=== PATIENT | male | born 1955 | race Caucasian/White ===

== ENCOUNTER 2016-05-28 19:40 | Emergency (ER) | payer BC, OTHER ==
[2016-05-28] MEDS ORDERED: KETOROLAC 30 MG/ML 1 ML VIAL IVP STA (22:03)
[2016-05-28] MEDS ORDERED: SODIUM CHLORIDE 0.9% 1,000 ML IV STA (22:03)
[2016-05-28] MEDS ORDERED: ONDANSETRON 4 MG/2 ML VIAL IVP STA (22:03)
[2016-05-28] MEDS ORDERED: ACETAMINOPHEN IV (For NPO) 1,000 MG in EMPTY BAG 1 BAG IVPB STA (22:06)
--- NOTE | 2016-05-28 22:51 | ED ---
General Adult HPI - General Chief complaint: Nausea/Vomiting/Diarrhea Stated complaint: diarrhea/abdominal pain Time Seen by Provider: 05/28/16 21:54 Source: patient, RN notes reviewed Mode of arrival: ambulatory Limitations: no limitations - History of Present Illness Initial comments: Patient is a 61-year-old male with chief complaint of 1 day of diarrhea and fever. Patient reports that he's had multiple episodes of diarrhea but still feels that there is a hard stool at the beginning of the rectum causing obstruction. reports he's had no Motrin or Tylenol. Patient's mother also reports that he feel that whenever he is trying to drink he feels is unable to pass from his abdomen into his intestines. He denies any vomiting. Patient reports that he has a history of cholecystectomy, hernia repair and sinus surgery. He denies taking any Motrin Tylenol for his fevers. He denies any sick contacts. Patient denies any recent fever, chills, shortness of breath , chest pain, back pain, abdominal pain, nausea vomiting, numbness or tingling, dysuria or hematuria, constipation or diarrhea, headaches or visual changes, or any other current symptoms - Related Data Home Medications Medication Instructions Recorded Confirmed Aspirin [Adult Low Dose Aspirin EC] 81 mg PO DAILY 03/29/15 05/28/16 Losartan Potassium 100 mg PO QAM 03/29/15 05/28/16 Multivitamins, Thera [Multivitamin] 1 tab PO DAILY 03/29/15 05/28/16 Bismuth Subsalicylate 524 mg PO Q3H PRN MDD 8 DOSES 05/28/16 05/28/16 [Pepto-Bismol] Previous Rx's Medication Instructions Recorded Levofloxacin [Levaquin] 500 mg PO DAILY #2 tab 05/29/16 Allergies Allergy/AdvReac Type Severity Reaction Status Date / Time No Known Allergies Allergy Verified 05/28/16 22:25 Review of Systems ROS Statement: Those systems with pertinent positive or pertinent negative responses have been documented in the HPI. ROS Other: All systems not noted in ROS Statement are negative. Past Medical History Past Medical History: Hypertension Additional Past Medical History / Comment(s): left hernia History of Any Multi-Drug Resistant Organisms: None Reported Past Surgical History: Cholecystectomy, Hernia Repair Additional Past Surgical History / Comment(s): HEMORRHOIDECTOMY, colonoscopy, L inguinal hernia repair. Past Anesthesia/Blood Transfusion Reactions: No Reported Reaction Past Psychological History: No Psychological Hx Reported Additional Psychological History / Comment(s): Pt resides with his spouse. He is independent. Smoking Status: Never smoker Past Alcohol Use History: Rare Past Drug Use History: None Reported - Past Family History Father Family Medical History: COPD Additional Family Medical History / Comment(s): Father is 83 yrs old. Mother Family Medical History: No Reported History Additional Family Medical History / Comment(s): Mother has "heart problems" and is 80 yrs old. General Exam - General Exam Comments Initial Comments: Patient is a well-appearing 61-year-old male. Patient doesn't appear to be in any acute distress. Limitations: no limitations General appearance: alert, in no apparent distress Head exam: Present: atraumatic, normocephalic, normal inspection Eye exam: Present: normal appearance, PERRL, EOMI. Absent: scleral icterus, conjunctival injection, periorbital swelling ENT exam: Present: normal exam, mucous membranes moist Neck exam: Present: normal inspection. Absent: tenderness, meningismus, lymphadenopathy Respiratory exam: Present: normal lung sounds bilaterally. Absent: respiratory distress, wheezes, rales, rhonchi, stridor Cardiovascular Exam: Present: regular rate, normal rhythm, normal heart sounds. Absent: systolic murmur, diastolic murmur, rubs, gallop, clicks GI/Abdominal exam: Present: soft, tenderness (Patient reports mild epigastric tenderness.), normal bowel sounds. Absent: distended, guarding, rebound, rigid Extremities exam: Present: normal inspection, full ROM, normal capillary refill. Absent: tenderness, pedal edema, joint swelling, calf tenderness Back exam: Present: normal inspection Neurological exam: Present: alert, oriented X3, CN II-XII intact Psychiatric exam: Present: normal affect, normal mood Skin exam: Present: warm, dry, intact, normal color. Absent: rash Course Vital Signs 05/28/16 05/29/16 05/29/16 20:26 00:15 02:13 Temperature 101.1 F H 98.5 F 97.6 F Pulse Rate 119 H 77 82 Respiratory 20 18 18 Rate Blood Pressure 113/74 112/57 95/53 O2 Sat by Pulse 99 95 95 Oximetry Medical Decision Making - Medical Decision Making Patient is a 61-year-old male with 1 day of diarrhea. Patient also has a fever but has had no Motrin Tylenol. Patient's upper quadrant region patient does have elevated leukocytosis of 14. Patient given patient's recent fever and urinalysis showing blood thinners approximately he could have a mild obstruction stone. CT abdomen and pelvis was obtained. The area is evidence of bilateral renal colliculi. There is also evidence of left renal cysts. Radiologist recommends follow-up CT with IV contrast her ultrasound to be recommended. Nonspecific bowel gas pattern. No evidence of free fluid or free air. There was evidence of a small hiatal hernia. This was read by Dr. Jeanie Ricci. I discussed these findings with the patient. Patient reports that he did have a few other episodes of diarrhea while in the emergency department but does feel much better after receiving Tylenol and pain medication. Patient reports that he would like to go home at this time. I will start the patient on Levaquin for possibility of infectious diarrhea given the fact that he does have a fever. Patient was given an initial dose in the emergency department and written for the following 2 days. I advised patient to follow-up with primary care provider regards to the renal cyst and his continuous diarrhea. Patient understands treatment plan will comply. Return parameters were discussed. - Lab Data Result diagrams: 05/28/16 20:40 05/28/16 20:40 Lab Results 05/28/16 05/28/16 05/28/16 Range/Units 20:40 20:40 20:40 WBC 14.1 H (3.8-10.6) k/uL RBC 5.15 (4.30-5.90) m/uL Hgb 15.6 (13.0-17.5) gm/dL Hct 46.7 (39.0-53.0) % MCV 90.7 (80.0-100.0) fL MCH 30.2 (25.0-35.0) pg MCHC 33.3 (31.0-37.0) g/dL RDW 13.3 (11.5-15.5) % Plt Count 217 (150-450) k/uL Neutrophils % 94 % Lymphocytes % 2 % Monocytes % 3 % Eosinophils % 1 % Basophils % 0 % Neutrophils # 13.3 H (1.3-7.7) k/uL Lymphocytes # 0.3 L (1.0-4.8) k/uL Monocytes # 0.4 (0-1.0) k/uL Eosinophils # 0.1 (0-0.7) k/uL Basophils # 0.0 (0-0.2) k/uL Sodium 139 (137-145) mmol/L Potassium 4.4 (3.5-5.1) mmol/L Chloride 103 (98-107) mmol/L Carbon Dioxide 22 (22-30) mmol/L Anion Gap 14 mmol/L BUN 24 H (9-20) mg/dL Creatinine 1.00 (0.66-1.25) mg/dL Est GFR (MDRD) Af Amer >60 (>60 ml/min/1.73 sqM) Est GFR (MDRD) Non-Af >60 (>60 ml/min/1.73 sqM) Glucose 117 H (74-99) mg/dL Calcium 9.4 (8.4-10.2) mg/dL Total Bilirubin 1.0 (0.2-1.3) mg/dL AST 24 (17-59) U/L ALT 47 (21-72) U/L Alkaline Phosphatase 51 (38-126) U/L Total Protein 8.0 (6.3-8.2) g/dL Albumin 4.7 (3.5-5.0) g/dL Amylase 96 (30-110) U/L Lipase 388 H (23-300) U/L Urine Color Yellow Urine Appearance Clear (Clear) Urine pH 5.5 (5.0-8.0) Ur Specific [place] 1.020 (1.001-1.035) Urine Protein Trace H (Negative) Urine Glucose (UA) Negative (Negative) Urine Ketones Negative (Negative) Urine Blood Moderate H (Negative) Urine Nitrate Negative (Negative) Urine Bilirubin Negative (Negative) Urine Urobilinogen <2.0 (<2.0) mg/dL Ur Leukocyte Esterase Negative (Negative) Urine RBC 3 (0-5) /hpf Urine WBC 1 (0-5) /hpf Urine Mucus Rare H (None) /hpf Influenza Type A RNA (Not Detectd) Influenza Type B (PCR) (Not Detectd) 05/28/16 Range/Units 20:40 WBC (3.8-10.6) k/uL RBC (4.30-5.90) m/uL Hgb (13.0-17.5) gm/dL Hct (39.0-53.0) % MCV (80.0-100.0) fL MCH (25.0-35.0) pg MCHC (31.0-37.0) g/dL RDW (11.5-15.5) % Plt Count (150-450) k/uL Neutrophils % % Lymphocytes % % Monocytes % % Eosinophils % % Basophils % % Neutrophils # (1.3-7.7) k/uL Lymphocytes # (1.0-4.8) k/uL Monocytes # (0-1.0) k/uL Eosinophils # (0-0.7) k/uL Basophils # (0-0.2) k/uL Sodium (137-145) mmol/L Potassium (3.5-5.1) mmol/L Chloride (98-107) mmol/L Carbon Dioxide (22-30) mmol/L Anion Gap mmol/L BUN (9-20) mg/dL Creatinine (0.66-1.25) mg/dL Est GFR (MDRD) Af Amer (>60 ml/min/1.73 sqM) Est GFR (MDRD) Non-Af (>60 ml/min/1.73 sqM) Glucose (74-99) mg/dL Calcium (8.4-10.2) mg/dL Total Bilirubin (0.2-1.3) mg/dL AST (17-59) U/L ALT (21-72) U/L Alkaline Phosphatase (38-126) U/L Total Protein (6.3-8.2) g/dL Albumin (3.5-5.0) g/dL Amylase (30-110) U/L Lipase (23-300) U/L Urine Color Urine Appearance (Clear) Urine pH (5.0-8.0) Ur Specific [place] (1.001-1.035) Urine Protein (Negative) Urine Glucose (UA) (Negative) Urine Ketones (Negative) Urine Blood (Negative) Urine Nitrate (Negative) Urine Bilirubin (Negative) Urine Urobilinogen (<2.0) mg/dL Ur Leukocyte Esterase (Negative) Urine RBC (0-5) /hpf Urine WBC (0-5) /hpf Urine Mucus (None) /hpf Influenza Type A RNA Not Detected (Not Detectd) Influenza Type B (PCR) Not Detected (Not Detectd) - Radiology Data Radiology results: report reviewed Possible right renal calculus. Nonacute abdomen. There is decreased right side of fecal material compared to previous old exam. CT abdomen and pelvis shows a nonobstructing bilateral renal colliculi. Small bilateral renal lesions one which appears complex and left kidney. Following a CT with IV contrast or ultrasound would be recommended. Nonspecific bowel gas pattern. No fluid air. Small hiatal hernia. Disposition Clinical Impression: Diarrhea, Cyst of left kidney, Renal calculi Disposition: HOME SELF-CARE Condition: Good Instructions: Acute Diarrhea (ED) Additional Instructions: Patient advised to rest, increase fluids, and to complete prescription. Follow- up with primary care provider regards to renal cyst. Return to emergency Department family alarming signs or symptoms occur. Prescriptions: Levofloxacin [Levaquin] 500 mg PO DAILY #2 tab Referrals: Aryan Burgess DO [Primary Care Provider] - 1-2 days Time of Disposition: 01:59
[2016-05-28 22:55] LABS: Basophils % (A) 0 %; CH 30.7; CHCM 33.9; Eosinophils # (A) 0.1 k/uL (0-0.7); Eosinophils % (A) 1 %; HCT 46.7 % (39.0-53.0); HDW 2.63; HGB 15.6 gm/dL (13.0-17.5); Luc # (Auto) 0.04; Luc % (Auto) 0; Lymphocytes # (A) 0.3 k/uL (1.0-4.8); Lymphocytes % (A) 2 %; MCH 30.2 pg (25.0-35.0); MCHC 33.3 g/dL (31.0-37.0); MCV 90.7 fL (80.0-100.0); Mean Platelet Volume 6.6; Monocytes # (A) 0.4 k/uL (0-1.0); Monocytes % (A) 3 %; Neutrophils # (A) 13.3 k/uL (1.3-7.7); Neutrophils % (A) 94 %; RBC 5.15 m/uL (4.30-5.90); RDW 13.3 % (11.5-15.5); WBC 14.1 k/uL (3.8-10.6); WBC (Perox) 13.56
--- NOTE | 2016-05-28 23:01 | XR ---
EXAMINATION TYPE: XR KUB DATE OF EXAM: 05/28/2016 10:54 PM COMPARISON: 09/16/2015 HISTORY: Abdominal pain TECHNIQUE: 2 views FINDINGS: There is no sign of intestinal obstruction or pneumoperitoneum. Fecal pattern is normal. Th ere is no sign of a mass. There are no pathologic calcifications over the left kidney. There is a 4 m m calcification over lower pole right kidney. IMPRESSION: Possible right renal calculus. Nonacute abdomen. There is decrease in the right side feca l material compared to old exam.
[2016-05-28 23:02] LABS: Appearance,Urine Clear (Clear); Bilirubin,Urine Negative (Negative); Glucose,Urine (UA) Negative (Negative); Ketones,Urine Negative (Negative); Leukocyte Esterase,Urine Negative (Negative); Mucus,Urine Rare /hpf; Nitrite,Urine Negative (Negative); PH, Urine 5.5 (5.0-8.0); Particle Count 1918; Protein,Urine Trace (Negative); RBC,Urine 3 /hpf (0-5); UA Billing (MACRO vs. MICRO) MICRO; Urobilinogen,Urine <2.0 mg/dL (<2.0); WBC,Urine 1 /hpf (0-5)
[2016-05-28 23:05] LABS: ALT 47 U/L (21-72); AST 24 U/L (17-59); Alkaline Phosphatase 51 U/L (38-126); Amylase 96 U/L (30-110); Anion Gap 14 mmol/L; Blood Urea Nitrogen 24 mg/dL (9-20); Calcium 9.4 mg/dL (8.4-10.2); Carbon Dioxide 22 mmol/L (22-30); Chloride 103 mmol/L (98-107); Glucose 117 mg/dL (74-99); Non-African American GFR(MDRD) >60 (>60 ml/min/1.73 sqM); Potassium 4.4 mmol/L (3.5-5.1); Sodium 139 mmol/L (137-145)
[2016-05-29 00:16] VITALS: RESP 18
[2016-05-29] MEDS ORDERED: LEVOFLOXACIN 500 MG TAB PO STA (01:55)
[2016-05-29 02:15] VITALS: BP 95/53; PULSE 82; TEMP 97.6
--- NOTE | 2016-05-29 14:18 | CT ---
EXAM: CT Abdomen and Pelvis Without Intravenous Contrast. CLINICAL HISTORY: Reason: Pain TECHNIQUE: Axial computed tomography images of the abdomen and pelvis without intravenous contrast. CTDI is 20.6 mGy and DLP is 1153 mGy-cm COMPARISON: No relevant prior studies available. FINDINGS: Limitations: Absent IV and oral contrast limit evaluation. Lower thorax: Mild bibasilar atelectasis/scarring. Small hiatal hernia. ABDOMEN: Liver: Unremarkable. Gallbladder and bile ducts: Gallbladder not well visualized which may reflect surgical absence. No ductal dilation. Pancreas: Unremarkable. No ductal dilation. Spleen: Unremarkable. No splenomegaly. Adrenals: Slight enlargement of the left adrenal gland. Kidneys and ureters: Few calcifications in the lower right kidney. Largest measures 6 mm. No right ureteral calcification. Few punctate calcification in the upper and lower left kidney. No left ureteral calcification. Small subtle low-density lesion in the mid to lower posterior right kidney. This probably represents a cyst. Small isodense exophytic lesion in the posterior left mid kidney. This measures 8mm. This may reflect complex cyst. Small isodense mass difficult to exclude Stomach and bowel: Scattered air-fluid levels in the small and large bowel loops, nonspecific. No mucosal thickening. Appendix: Normal appendix. PELVIS: Bladder: No stones. Reproductive: Unremarkable as visualized. ABDOMEN and PELVIS: Intraperitoneal space: No free fluid. No free air. Bones/joints: No acute fracture. No dislocation. Soft tissues: Small left inguinal hernia containing fat. Vasculature: Unremarkable. No abdominal aortic aneurysm. Lymph nodes: Unremarkable. No enlarged lymph nodes. IMPRESSION: 1. Nonobstructing bilateral renal calculi. 2. Small bilateral renal lesions, one of which appears complex in the left kidney. Follow-up CT with IV contrast or ultrasound recommended. 3. Nonspecific bowel gas pattern. No free fluid or air. 4. Small hiatal hernia
== END 2016-05-29 02:14 | disposition home or self-care (01) ==
LOC: EC 19:40
DX: N20.0 Calculus of kidney (principal); N28.1 Cyst of kidney, acquired; R19.7 Diarrhea, unspecified; D72.829 Elevated white blood cell count, unspecified; K44.9 Diaphragmatic hernia without obstruction or gangrene; I10 Essential (primary) hypertension; Z79.82 Long term (current) use of aspirin; Z90.49 Acquired absence of other specified parts of digestive tract; Z79.899 Other long term (current) drug therapy; Z98.890 Other specified postprocedural states
CPT/HCPCS: 99284; 96374; 96375 ×2; 96361; 36415; 80053; 82150; 83690; 85025; 81001; 87502; 74000; 74176; J2405; J1885; J0131

== ENCOUNTER → 2016-06-13 | Outpatient (CLI) | payer BC ==
--- NOTE | 2016-06-13 08:28 | CT ---
EXAMINATION TYPE: CT abdomen w con DATE OF EXAM: 06/13/2016 8:13 AM COMPARISON: 05/28/2016 HISTORY: Abn CT renal stone. Complex left renal lesion. CT DLP: 1378 mGycm CONTRAST: CT scan of the abdomen and pelvis is performed with Oral Contrast and with IV Contrast, patient injec elisabeth with 100 ml mL of Omnipaque 300. FINDINGS: LUNG BASES-: No visible nodule. No infiltrate. Small sliding-type hiatal hernia is noted. LIVER/GB: No calcified gallstones. No space occupying hepatic lesion. Biliary tree is of normal ca liber. PANCREAS: No inflammation. No distinct mass. SPLEEN: No splenic enlargement. No lesion seen. ADRENALS: Left adrenal glandular hyperplasia. Right adrenal gland is unremarkable. KIDNEYS/BLADDER: There is bilateral nonobstructing nephrolithiasis. 3 right-sided renal cortical cyst s are noted measuring up to 1.1 cm. There is a too small to characterize 8mm left renal cortical lesi on mid pole which is of slightly increased density and may reflect a mucinous containing cyst althoug h precautionary follow-up in 6 months is advised. BOWEL: Normal bowel caliber. No inflammation. LYMPH NODES: No greater than 1cm abdominal or pelvic lymph nodes are appreciated. AORTA: No significant abnormality. OSSEOUS STRUCTURES: No significant abnormality is seen. OTHER: No significant additional abnormality is seen. IMPRESSION: 1. Too small to characterize left renal lesion which is probably benign. Consider 6 month follow-up e valuation. 2. Bilateral nephrolithiasis nonobstructing. 3. Simple appearing right renal cortical cysts. 4. Small hiatal hernia.
== END | disposition home or self-care (01) ==
LOC: RADCTMAIN 07:33
PROVIDERS: ATTEND Family Medicine
DX: N20.0 Calculus of kidney (principal); K44.9 Diaphragmatic hernia without obstruction or gangrene
CPT/HCPCS: 74160; Q9967

== ENCOUNTER 2019-05-03 06:24 | Emergency (ER) | payer BC ==
[2019-05-03 06:32] VITALS: BP 158/83; PULSE 87; RESP 20; TEMP 98.4
--- NOTE | 2019-05-03 06:53 | XR ---
EXAMINATION TYPE: XR ankle complete RT DATE OF EXAM: 05/03/2019 COMPARISON: NONE HISTORY: Ankle pain TECHNIQUE: 3 views FINDINGS: Ankle mortise is anatomic. I see no fracture nor dislocation. There are small plantar calca katie spur. IMPRESSION: No fracture seen.
[2019-05-03] MEDS ORDERED: COLCHICINE 0.6 MG EACH PO STA (06:55)
--- NOTE | 2019-05-03 07:00 | ED ---
Lower Extremity Injury HPI - General Chief Complaint: Extremity Injury, Lower Stated Complaint: R Ankle Pain Time Seen by Provider: 05/03/19 06:34 Source: patient, family, RN notes reviewed Mode of arrival: ambulatory Limitations: no limitations - History of Present Illness Initial Comments: 64-year-old male presents emergency Department with chief complaint of right ankle pain. Patient states a couple days ago he like he stepped on wrong just moved wrong. Patient states that there is pain when he weight bears it is sensitive to the touch but denies any significant discoloration including erythema. Patient states this had no prior fractures no history. Patient denies any pain in his foot or proximal leg. No complaints of paresthesias. - Related Data Home Medications Medication Instructions Recorded Confirmed Aspirin [Adult Low Dose Aspirin EC] 81 mg PO DAILY 03/29/15 05/28/16 Losartan Potassium 100 mg PO QAM 03/29/15 05/28/16 Multivitamins, Thera [Multivitamin 1 tab PO DAILY 03/29/15 05/28/16 (formulary)] Bismuth Subsalicylate 524 mg PO Q3H PRN MDD 8 DOSES 05/28/16 05/28/16 [Pepto-Bismol] Previous Rx's Medication Instructions Recorded Levofloxacin [Levaquin] 500 mg PO DAILY #2 tab 05/29/16 Ibuprofen [Motrin] 600 mg PO Q8HR PRN #20 tab 05/03/19 Allergies Allergy/AdvReac Type Severity Reaction Status Date / Time No Known Allergies Allergy Verified 05/03/19 06:32 Review of Systems ROS Statement: Those systems with pertinent positive or pertinent negative responses have been documented in the HPI. ROS Other: All systems not noted in ROS Statement are negative. Past Medical History Past Medical History: Hypertension Additional Past Medical History / Comment(s): left hernia History of Any Multi-Drug Resistant Organisms: None Reported Past Surgical History: Cholecystectomy, Hernia Repair Additional Past Surgical History / Comment(s): HEMORRHOIDECTOMY, colonoscopy, L inguinal hernia repair., right hematoma removed Past Anesthesia/Blood Transfusion Reactions: No Reported Reaction Past Psychological History: No Psychological Hx Reported Smoking Status: Never smoker Past Alcohol Use History: Rare Past Drug Use History: None Reported - Past Family History Father Family Medical History: COPD Additional Family Medical History / Comment(s): Father is 83 yrs old. Mother Family Medical History: No Reported History Additional Family Medical History / Comment(s): Mother has "heart problems" and is 80 yrs old. General Exam Limitations: no limitations General appearance: alert, in no apparent distress Head exam: Present: atraumatic, normocephalic, normal inspection Respiratory exam: Present: normal lung sounds bilaterally. Absent: respiratory distress, wheezes, rales, rhonchi, stridor Cardiovascular Exam: Present: regular rate, normal rhythm, normal heart sounds. Absent: systolic murmur, diastolic murmur, rubs, gallop, clicks Extremities exam: Present: other (Right ankle there is moderate swelling no signs of infection, no open wounds or sores ,varicose veins noted on the medial aspect. There is no foot or proximal tib-fib tenderness leg, foot is neurovascularly intact. There is some tenderness on the medial and lateral malleoli region) Course Vital Signs 05/03/19 06:28 Temperature 98.4 F Pulse Rate 87 Respiratory 20 Rate Blood Pressure 158/83 O2 Sat by Pulse 97 Oximetry Medical Decision Making - Medical Decision Making X-rays were reviewed and read by radiologist no acute fractures. Patient does have some mild swelling may related to right ankle sprain. He does have some symptoms the skin and possible early gout. Patient will be treated with anti- inflammatories, brace at this time. He'll follow-up with orthopedics and return for any worsening symptoms. Disposition Clinical Impression: Right ankle sprain Disposition: HOME SELF-CARE Condition: Stable Instructions (If sedation given, give patient instructions): Ankle Sprain (ED) Additional Instructions: Please return to the Emergency Department if symptoms worsen or any other concerns. Prescriptions: Ibuprofen [Motrin] 600 mg PO Q8HR PRN #20 tab PRN Reason: Pain Is patient prescribed a controlled substance at d/c from ED?: No Referrals: Aryan Burgess DO [Primary Care Provider] - 1-2 days Neel Cardona MD [Medical Doctor] - 1-2 days Time of Disposition: 07:00
[2019-05-03] MEDS ORDERED: IBUPROFEN 600 MG TAB PO STA (07:04)
== END 2019-05-03 07:20 | disposition home or self-care (01) ==
LOC: EC 06:24
DX: S93.401A Sprain of unspecified ligament of right ankle, initial encounter (principal); I10 Essential (primary) hypertension; Z79.82 Long term (current) use of aspirin; Z79.899 Other long term (current) drug therapy; X50.9XXA Other and unspecified overexertion or strenuous movements or postures, initial encounter
CPT/HCPCS: 73610; 99283; 29515; L4350

== ENCOUNTER 2020-10-08 10:02 | Emergency (ER) | payer BC ==
[2020-10-08 10:09] VITALS: BP 159/90; PULSE 54; RESP 18; TEMP 97.9
[2020-10-08] MEDS ORDERED: KETOROLAC 15 MG/ML 1 ML VIAL IM STA (10:25)
[2020-10-08] MEDS ORDERED: ACET/COD 300 MG/30 MG STARTER PACK 6 TAB BTL PO STA (10:26)
--- NOTE | 2020-10-08 10:38 | ED ---
Back Pain HPI - General Chief Complaint: Back Pain/Injury Stated Complaint: Lower back pain Time Seen by Provider: 10/08/20 10:11 Source: patient Limitations: no limitations - History of Present Illness Initial Comments: Patient is a 65-year-old male presenting to the emergency Department with complaints of low back pain for the past 4 days. He states the pain is in the middle of his lower lumbar region. He states he's had pain before and it usually lasts a couple days but this time lasting about 4 days. He states has been helping his a lot recently had a knee surgery and thinks he might have just pulled some muscles. He denies any falls or trauma, no previous surgeries or fractures. He denies any numbness into her [place] to extremities, no saddle paresthesias, no bowel or bladder incontinence. Denies any fevers or chills. He states his been trying ibuprofen but is not helping. He denies any further complaints at this time. - Related Data Home Medications Medication Instructions Recorded Confirmed Aspirin [Adult Low Dose Aspirin EC] 81 mg PO DAILY 03/29/15 05/28/16 Losartan Potassium 100 mg PO QAM 03/29/15 05/28/16 Multivitamins, Thera [Multivitamin 1 tab PO DAILY 03/29/15 05/28/16 (formulary)] Bismuth Subsalicylate 524 mg PO Q3H PRN MDD 8 DOSES 05/28/16 05/28/16 [Pepto-Bismol] Previous Rx's Medication Instructions Recorded Levofloxacin [Levaquin] 500 mg PO DAILY #2 tab 05/29/16 Ibuprofen [Motrin] 600 mg PO Q8HR PRN #20 tab 05/03/19 Cyclobenzaprine [Flexeril] 5 mg PO BID #15 tablet 10/08/20 Allergies Allergy/AdvReac Type Severity Reaction Status Date / Time No Known Allergies Allergy Verified 10/08/20 10:09 Review of Systems ROS Statement: Those systems with pertinent positive or pertinent negative responses have been documented in the HPI. ROS Other: All systems not noted in ROS Statement are negative. Past Medical History Past Medical History: Hypertension Additional Past Medical History / Comment(s): left hernia History of Any Multi-Drug Resistant Organisms: None Reported Past Surgical History: Cholecystectomy, Hernia Repair Additional Past Surgical History / Comment(s): HEMORRHOIDECTOMY, colonoscopy, L inguinal hernia repair., right hematoma removed Past Anesthesia/Blood Transfusion Reactions: No Reported Reaction Past Psychological History: No Psychological Hx Reported Smoking Status: Never smoker Past Alcohol Use History: Rare Past Drug Use History: None Reported - Past Family History Father Family Medical History: COPD Additional Family Medical History / Comment(s): Father is 83 yrs old. Mother Family Medical History: No Reported History Additional Family Medical History / Comment(s): Mother has "heart problems" and is 80 yrs old. General Exam - General Exam Comments Initial Comments: GENERAL: Patient is well-developed and well-nourished. Patient is nontoxic and in no acute distress. HEAD: Atraumatic, normocephalic. EYES: Pupils equal round and reactive to light, extraocular movements intact, sclera anicteric, conjunctiva are normal. Eyelids were unremarkable. ENT: Nares patent, oropharynx clear without exudates. Moist mucous membranes. NECK: Normal range of motion, supple without lymphadenopathy or JVD. LUNGS: Unlabored respirations. Breath sounds clear to auscultation bilaterally and equal. No wheezes rales or rhonchi. HEART: Regular rate and rhythm without murmurs, rubs or gallops. ABDOMEN: Soft, nontender, normoactive bowel sounds. No guarding, no rebound. No masses appreciated. : Deferred MUSCULOSKELETAL: Normal extremities with adequate strength and normal range of motion, no pitting or edema. No clubbing or cyanosis. mild pain with palpation of the distal lumbar spine and lumbar paraspinals. Neurovascular intact bilateral lower extremities. NEUROLOGICAL: Patient is alert and oriented x 3. Motor and sensory are also intact. Cranial nerves II through XII grossly intact. Symmetrical smile. Normal speech, normal gait. PSYCH: Normal mood, normal affect. SKIN: Warm, Dry, normal turgor, no rashes or lesions noted. Limitations: no limitations Course Vital Signs 10/08/20 10:07 Temperature 97.9 F Pulse Rate 54 L Respiratory 18 Rate Blood Pressure 159/90 O2 Sat by Pulse 98 Oximetry Medical Decision Making - Medical Decision Making Patient is a 65-year-old male here with low back pain for the past 4 days. He has been helping his who recently had knee surgery, doing more lifting in usual. He has no other alarming symptoms, no neuro deficits, no saddle paresthesia, no bowel or bladder incontinence. He is sore around the lower lumbar paraspinals. Discussed with patient this most likely a muscle spasms. We'll give him a Toradol injection today along with some Tylenol threes to go home with. I also gave him a prescription for muscle relaxers. He will follow up with his primary care physician if symptoms persist in 2 days. Return parameters were discussed with him and he verbalized understanding. Case discussed with Dr. Saleh. Disposition Clinical Impression: Strain of lumbar region Disposition: HOME SELF-CARE Condition: Stable Instructions (If sedation given, give patient instructions): Acute Low Back Pain (ED) Additional Instructions: Please return to the Emergency Department if symptoms worsen or any other concerns. Continue with heat and/or ice to the low back, gentle stretching. Recommend continuing with ibuprofen for discomfort, may alternate with Tylenol #3's for more severe pain. Follow up primary care physician if symptoms persist. Prescriptions: Cyclobenzaprine [Flexeril] 5 mg PO BID #15 tablet Is patient prescribed a controlled substance at d/c from ED?: No Referrals: Aryan Burgess DO [Primary Care Provider] - 1-2 days Time of Disposition: 10:38
== END 2020-10-08 10:52 | disposition home or self-care (01) ==
LOC: EC 10:02
DX: S39.012A Strain of muscle, fascia and tendon of lower back, initial encounter (principal); I10 Essential (primary) hypertension; Z79.82 Long term (current) use of aspirin; Z79.1 Long term (current) use of non-steroidal anti-inflammatories (NSAID); Z79.899 Other long term (current) drug therapy; X50.1XXA Overexertion from prolonged static or awkward postures, initial encounter
CPT/HCPCS: 96372; 99283; J1885

== ENCOUNTER 2020-10-10 23:04 | Emergency (ER) | payer BC ==
[2020-10-10] MEDS ORDERED: HYDROmorphone 1 MG/ML 1 ML SYRINGE IM STA (23:16)
--- NOTE | 2020-10-10 23:58 | ED ---
Recheck HPI - General Chief Complaint: Back Pain/Injury Stated Complaint: Back Pain Time Seen by Provider: 10/10/20 23:13 Source: patient Mode of arrival: ambulatory Limitations: no limitations - Related Data Home Medications Medication Instructions Recorded Confirmed Aspirin [Adult Low Dose Aspirin EC] 81 mg PO DAILY 03/29/15 05/28/16 Losartan Potassium 100 mg PO QAM 03/29/15 05/28/16 Multivitamins, Thera [Multivitamin 1 tab PO DAILY 03/29/15 05/28/16 (formulary)] Bismuth Subsalicylate 524 mg PO Q3H PRN MDD 8 DOSES 05/28/16 05/28/16 [Pepto-Bismol] Previous Rx's Medication Instructions Recorded Levofloxacin [Levaquin] 500 mg PO DAILY #2 tab 05/29/16 Ibuprofen [Motrin] 600 mg PO Q8HR PRN #20 tab 05/03/19 Cyclobenzaprine [Flexeril] 5 mg PO BID #15 tablet 10/08/20 Allergies Allergy/AdvReac Type Severity Reaction Status Date / Time No Known Allergies Allergy Verified 10/10/20 23:09 Review of Systems ROS Statement: Those systems with pertinent positive or pertinent negative responses have been documented in the HPI. ROS Other: All systems not noted in ROS Statement are negative. Past Medical History Past Medical History: Hypertension Additional Past Medical History / Comment(s): left hernia History of Any Multi-Drug Resistant Organisms: None Reported Past Surgical History: Cholecystectomy, Hernia Repair Additional Past Surgical History / Comment(s): HEMORRHOIDECTOMY, colonoscopy, L inguinal hernia repair., right hematoma removed Past Anesthesia/Blood Transfusion Reactions: No Reported Reaction Past Psychological History: No Psychological Hx Reported Smoking Status: Never smoker Past Alcohol Use History: Rare Past Drug Use History: None Reported - Past Family History Father Family Medical History: COPD Additional Family Medical History / Comment(s): Father is 83 yrs old. Mother Family Medical History: No Reported History Additional Family Medical History / Comment(s): Mother has "heart problems" and is 80 yrs old. General Exam Limitations: no limitations Course Vital Signs 10/10/20 23:06 Temperature 97.8 F Pulse Rate 75 Respiratory 20 Rate Blood Pressure 193/95 O2 Sat by Pulse 98 Oximetry Disposition Clinical Impression: Mid back pain, Lumbar radiculopathy Disposition: HOME SELF-CARE Condition: Good Instructions (If sedation given, give patient instructions): Acute Low Back Pain (ED) Is patient prescribed a controlled substance at d/c from ED?: No Referrals: Aryan Burgess DO [Primary Care Provider] - 1-2 days
--- NOTE | 2020-10-11 00:28 | CT ---
EXAMINATION TYPE: CT abdomen pelvis wo con DATE OF EXAM: 10/11/2020 COMPARISON: 07/03/2016 HISTORY: Right flank pain CT DLP: 1279.4 mGycm Automated exposure control for dose reduction was used. There is mild subsegmental atelectasis at the lung bases. Heart size is fairly normal. There is no pe ricardial effusion. There is no pleural effusion. Liver spleen stomach pancreas appear intact. The bile ducts are not dilated. Gallbladder appears abse nt. The bile ducts are not dilated. There is no adrenal mass. Kidneys have normal size. There is bilateral multiple renal calculi that me asure up to 7 mm. There is no hydronephrosis. Ureters are not dilated. There is no retroperitoneal ad enopathy. Bladder distends smoothly. There is no inguinal hernia. There is no free fluid in the pelvi s. There is no mesenteric edema. There is no ascites or free air. There is no bowel obstruction. Appendi x appears normal. There is 2 cm cortical cyst posterior right kidney. The lumbar vertebra have normal alignment. Disc spaces are fairly normal. There is no compression fra cture. Bony pelvis is intact. The hip joints are intact. There is no hip dysplasia. IMPRESSION: Multiple bilateral renal nonobstructing calculi. Calculi appear increased in size and number compared to old exam. Normal appendix.
[2020-10-11] MEDS ORDERED: LIDOCAINE 5% PATCH TOPICAL STA (00:30)
[2020-10-11] MEDS ORDERED: traMADol 50 MG STARTER PACK 3 TAB BTL PO STA (00:30)
[2020-10-11 00:58] VITALS: BP 134/87; PULSE 79; RESP 22; TEMP 98
== END 2020-10-11 00:58 | disposition home or self-care (01) ==
LOC: EC 23:04
DX: M54.16 Radiculopathy, lumbar region (principal); N20.0 Calculus of kidney; I10 Essential (primary) hypertension; Z79.82 Long term (current) use of aspirin; Z79.1 Long term (current) use of non-steroidal anti-inflammatories (NSAID); Z79.899 Other long term (current) drug therapy
CPT/HCPCS: 74176; 96372; 99284; J1170

== ENCOUNTER 2021-01-17 08:50 | Inpatient (IN) | payer BC ==
[2021-01-17] MEDS ORDERED: ONDANSETRON 4 MG/2 ML VIAL IVP STA (09:53)
[2021-01-17] MEDS ORDERED: MORPHINE SULFATE 4 MG/ML SYRINGE IV STA (09:53)
[2021-01-17] MEDS ORDERED: SODIUM CHLORIDE 0.9% 500 ML 500 ML IV STA (09:53)
[2021-01-17 10:16] LABS: Basophils % (A) 0 %; Eosinophils # (A) 0.2 k/uL (0-0.7); Eosinophils % (A) 1 %; HCT 43.5 % (39.0-53.0); HGB 14.5 gm/dL (13.0-17.5); Lymphocytes # (A) 1.2 k/uL (1.0-4.8); Lymphocytes % (A) 8 %; MCH 30.8 pg (25.0-35.0); MCHC 33.3 g/dL (31.0-37.0); MCV 92.4 fL (80.0-100.0); Mean Platelet Volume 6.8; Monocytes # (A) 0.7 k/uL (0-1.0); Monocytes % (A) 5 %; Neutrophils # (A) 12.3 k/uL (1.3-7.7); Neutrophils % (A) 85 %; Platelet Count 224 k/uL (150-450); RBC 4.71 m/uL (4.30-5.90); RDW 12.6 % (11.5-15.5); WBC 14.6 k/uL (3.8-10.6)
[2021-01-17 10:30] LABS: ALT 35 U/L (4-49); AST 33 U/L (17-59); African American GFR (CKD) >90 (>60 ml/min/1.73 sqM); Albumin 4.4 g/dL (3.5-5.0); Alkaline Phosphatase 46 U/L (38-126); Amylase 84 U/L (30-110); Anion Gap 8 mmol/L; Blood Urea Nitrogen 26 mg/dL (9-20); Calcium 10.2 mg/dL (8.4-10.2); Carbon Dioxide 24 mmol/L (22-30); Chloride 106 mmol/L (98-107); Glucose 96 mg/dL (74-99); Lipase 280 U/L (23-300); Non-African American GFR(CKD) >90 (>60 ml/min/1.73 sqM); Potassium 4.7 mmol/L (3.5-5.1); Sodium 138 mmol/L (137-145); Total Bilirubin 0.6 mg/dL (0.2-1.3); Total Protein 7.8 g/dL (6.3-8.2)
[2021-01-17 10:31] LABS: INR 0.9 (<1.2); Prothrombin Time 9.5 sec (9.0-12.0)
[2021-01-17 10:34] LABS: Appearance,Urine Clear (Clear); Bilirubin,Urine Negative (Negative); Blood,Urine Moderate (Negative); Color,Urine Yellow; Glucose,Urine (UA) Negative (Negative); Ketones,Urine Negative (Negative); Leukocyte Esterase,Urine Negative (Negative); Mucus,Urine Rare /hpf; Nitrite,Urine Negative (Negative); Protein,Urine Negative (Negative); RBC,Urine 34 /hpf (0-5); Specific Gravity,Urine 1.018 (1.001-1.035); Urobilinogen,Urine <2.0 mg/dL (<2.0); WBC,Urine <1 /hpf (0-5)
--- NOTE | 2021-01-17 10:34 | CT ---
EXAMINATION TYPE: CT abdomen pelvis wo con DATE OF EXAM: 01/17/2021 HISTORY: right flank pain CT DLP: 1472 mGycm. Automated Exposure Control for Dose Reduction was Utilized. TECHNIQUE: CT scan of the abdomen and pelvis is performed without oral or IV contrast. COMPARISON: CT abdomen and pelvis October 10, 2020 FINDINGS: Within the limitations of a non-contrast study, the following observations are made. LUNG BASES: No significant abnormality is appreciated. LIVER/GB: Gallbladder not seen presumed surgically absent. PANCREAS: No significant abnormality is seen. SPLEEN: No significant abnormality is seen. ADRENALS: Slight thickening to left adrenal gland consistent with benign lipid rich hyperplasia redem onstrated and stable. KIDNEYS: Approximately 8 small left renal calculi 4 mm in size lower pole level on current study. No left-sided hydronephrosis. Approximately 5 right renal calculi up to 6 mm in size lower pole level. There Is new moderate right- sided hydronephrosis secondary to obstructing 8 mm calculus at UPJ on coronal image 65. BOWEL: Occasional colonic diverticula. No suspicious small or large bowel dilatation GENITAL ORGANS: Enlarged prostate consistent with BPH. Adjacent pelvic phleboliths. LYMPH NODES: No greater than 1cm abdominal or pelvic lymph nodes are appreciated. OSSEOUS STRUCTURES: Mild to moderate disc space narrowing lumbosacral junction. OTHER: Small size fat-containing left inguinal hernia. IMPRESSION: New moderate right-sided hydronephrosis due to obstructing 8 mm calculus at UPJ.
[2021-01-17 10:43] LABS: Partial Thromboplastin Time 21.6 sec (22.0-30.0)
[2021-01-17] MEDS ORDERED: NALOXONE 0.4 MG/ML 1 ML VIAL IV PRN (11:51)
[2021-01-17] MEDS ORDERED: ONDANSETRON 4 MG/2 ML VIAL IVP PRN (11:51)
[2021-01-17] MEDS ORDERED: ACETAMINOPHEN TAB 325 MG TAB PO PRN (11:51)
[2021-01-17] MEDS ORDERED: HYDROmorphone 0.5 MG/0.5 ML SYRINGE IVP PRN (11:51)
--- NOTE | 2021-01-17 11:55 | ED ---
General Adult HPI - General Chief complaint: Abdominal Pain Stated complaint: rt sided abd pain Time Seen by Provider: 01/17/21 09:37 Source: patient, family, RN notes reviewed, old records reviewed Mode of arrival: wheelchair Limitations: no limitations - History of Present Illness Initial comments: 65-year-old male presenting with right-sided flank pain radiating to the groin. Previous remote history of kidney stones. He had some associated nausea and vomiting. This is been severe over the past 24 hours. Patient denies upper abdominal pain or chest pain. He states he has had normal bowel movements. - Related Data Home Medications Medication Instructions Recorded Confirmed Aspirin [Adult Low Dose Aspirin EC] 81 mg PO DAILY 03/29/15 05/28/16 Losartan Potassium 100 mg PO QAM 03/29/15 05/28/16 Multivitamins, Thera [Multivitamin 1 tab PO DAILY 03/29/15 05/28/16 (formulary)] Bismuth Subsalicylate 524 mg PO Q3H PRN MDD 8 DOSES 05/28/16 05/28/16 [Pepto-Bismol] Previous Rx's Medication Instructions Recorded Levofloxacin [Levaquin] 500 mg PO DAILY #2 tab 05/29/16 Ibuprofen [Motrin] 600 mg PO Q8HR PRN #20 tab 05/03/19 Cyclobenzaprine [Flexeril] 5 mg PO BID #15 tablet 10/08/20 Allergies Allergy/AdvReac Type Severity Reaction Status Date / Time No Known Allergies Allergy Verified 01/17/21 09:00 Review of Systems ROS Statement: Those systems with pertinent positive or pertinent negative responses have been documented in the HPI. ROS Other: All systems not noted in ROS Statement are negative. Past Medical History Past Medical History: Hypertension Additional Past Medical History / Comment(s): left hernia History of Any Multi-Drug Resistant Organisms: None Reported Past Surgical History: Cholecystectomy, Hernia Repair Additional Past Surgical History / Comment(s): HEMORRHOIDECTOMY, colonoscopy, L inguinal hernia repair., right hematoma removed Past Anesthesia/Blood Transfusion Reactions: No Reported Reaction Past Psychological History: No Psychological Hx Reported Smoking Status: Never smoker Past Alcohol Use History: Rare Past Drug Use History: None Reported - Past Family History Father Family Medical History: COPD Additional Family Medical History / Comment(s): Father is 83 yrs old. Mother Family Medical History: No Reported History Additional Family Medical History / Comment(s): Mother has "heart problems" and is 80 yrs old. General Exam Limitations: no limitations General appearance: alert, in no apparent distress Head exam: Present: atraumatic, normocephalic Eye exam: Present: normal appearance, PERRL ENT exam: Present: normal exam Neck exam: Present: normal inspection. Absent: tenderness, meningismus Respiratory exam: Present: normal lung sounds bilaterally. Absent: respiratory distress, wheezes Cardiovascular Exam: Present: regular rate, normal rhythm GI/Abdominal exam: Present: soft. Absent: distended, tenderness, guarding, rebound Extremities exam: Present: normal inspection, normal capillary refill Back exam: Present: CVA tenderness (R) Neurological exam: Present: alert, oriented X3, CN II-XII intact. Absent: motor sensory deficit Psychiatric exam: Present: normal affect, normal mood Skin exam: Present: warm, dry, intact. Absent: cyanosis, diaphoretic Course Vital Signs 01/17/21 09:00 Temperature 97.6 F Pulse Rate 65 Respiratory 16 Rate Blood Pressure 146/88 O2 Sat by Pulse 96 Oximetry Medical Decision Making - Medical Decision Making 65-year-old male presenting with flank pain on the right, concerning for renal colic. CT performed showing a large 8 mm stone at the UPJ with associated hy droureter and hydronephrosis. There is a leukocytosis which is likely reactive. Laboratory testing is otherwise unremarkable. Urinalysis showing hematuria without signs of infection. Patient remains quite symptomatic while in the emergency department. I did discuss case with the covering urologist Dr. Oropeza, who will evaluate this patient. He is admitted to internal medicine, Dr. Burgess is aware with urology on consult. - Lab Data Result diagrams: 01/17/21 10:01/17/21 10: Lab Results 01/17/21 01/17/21 01/17/21 Range/Units 10: 10: 10: WBC 14.6 H (3.8-10.6) k/uL RBC 4.71 (4.30-5.90) m/uL Hgb 14.5 (13.0-17.5) gm/dL Hct 43.5 (39.0-53.0) % MCV 92.4 (80.0-100.0) fL MCH 30.8 (25.0-35.0) pg MCHC 33.3 (31.0-37.0) g/dL RDW 12.6 (11.5-15.5) % Plt Count 224 (150-450) k/uL MPV 6.8 Neutrophils % 85 % Lymphocytes % 8 % Monocytes % 5 % Eosinophils % 1 % Basophils % 0 % Neutrophils # 12.3 H (1.3-7.7) k/uL Lymphocytes # 1.2 (1.0-4.8) k/uL Monocytes # 0.7 (0-1.0) k/uL Eosinophils # 0.2 (0-0.7) k/uL Basophils # 0.0 (0-0.2) k/uL PT 9.5 (9.0-12.0) sec INR 0.9 (<1.2) APTT 21.6 L (22.0-30.0) sec Sodium (137-145) mmol/L Potassium (3.5-5.1) mmol/L Chloride (98-107) mmol/L Carbon Dioxide (22-30) mmol/L Anion Gap mmol/L BUN (9-20) mg/dL Creatinine (0.66-1.25) mg/dL Est GFR (CKD-EPI)AfAm (>60 ml/min/1.73 sqM) Est GFR (CKD-EPI)NonAf (>60 ml/min/1.73 sqM) Glucose (74-99) mg/dL Plasma Lactic Acid Adarsh (0.7-2.0) mmol/L Calcium (8.4-10.2) mg/dL Total Bilirubin (0.2-1.3) mg/dL AST (17-59) U/L ALT (4-49) U/L Alkaline Phosphatase (38-126) U/L Total Protein (6.3-8.2) g/dL Albumin (3.5-5.0) g/dL Amylase (30-110) U/L Lipase (23-300) U/L Urine Color Yellow Urine Appearance Clear (Clear) Urine pH 6.0 (5.0-8.0) Ur Specific [place] 1.018 (1.001-1.035) Urine Protein Negative (Negative) Urine Glucose (UA) Negative (Negative) Urine Ketones Negative (Negative) Urine Blood Moderate H (Negative) Urine Nitrite Negative (Negative) Urine Bilirubin Negative (Negative) Urine Urobilinogen <2.0 (<2.0) mg/dL Ur Leukocyte Esterase Negative (Negative) Urine RBC 34 H (0-5) /hpf Urine WBC <1 (0-5) /hpf Urine Mucus Rare H (None) /hpf 01/17/21 01/17/21 Range/Units 10:01 10:01 WBC (3.8-10.6) k/uL RBC (4.30-5.90) m/uL Hgb (13.0-17.5) gm/dL Hct (39.0-53.0) % MCV (80.0-100.0) fL MCH (25.0-35.0) pg MCHC (31.0-37.0) g/dL RDW (11.5-15.5) % Plt Count (150-450) k/uL MPV Neutrophils % % Lymphocytes % % Monocytes % % Eosinophils % % Basophils % % Neutrophils # (1.3-7.7) k/uL Lymphocytes # (1.0-4.8) k/uL Monocytes # (0-1.0) k/uL Eosinophils # (0-0.7) k/uL Basophils # (0-0.2) k/uL PT (9.0-12.0) sec INR (<1.2) APTT (22.0-30.0) sec Sodium 138 (137-145) mmol/L Potassium 4.7 (3.5-5.1) mmol/L Chloride 106 (98-107) mmol/L Carbon Dioxide 24 (22-30) mmol/L Anion Gap 8 mmol/L BUN 26 H (9-20) mg/dL Creatinine 0.90 (0.66-1.25) mg/dL Est GFR (CKD-EPI)AfAm >90 (>60 ml/min/1.73 sqM) Est GFR (CKD-EPI)NonAf >90 (>60 ml/min/1.73 sqM) Glucose 96 (74-99) mg/dL Plasma Lactic Acid Adarsh 1.2 (0.7-2.0) mmol/L Calcium 10.2 (8.4-10.2) mg/dL Total Bilirubin 0.6 (0.2-1.3) mg/dL AST 33 (17-59) U/L ALT 35 (4-49) U/L Alkaline Phosphatase 46 (38-126) U/L Total Protein 7.8 (6.3-8.2) g/dL Albumin 4.4 (3.5-5.0) g/dL Amylase 84 (30-110) U/L Lipase 280 (23-300) U/L Urine Color Urine Appearance (Clear) Urine pH (5.0-8.0) Ur Specific Santa (1.001-1.035) Urine Protein (Negative) Urine Glucose (UA) (Negative) Urine Ketones (Negative) Urine Blood (Negative) Urine Nitrite (Negative) Urine Bilirubin (Negative) Urine Urobilinogen (<2.0) mg/dL Ur Leukocyte Esterase (Negative) Urine RBC (0-5) /hpf Urine WBC (0-5) /hpf Urine Mucus (None) /hpf Disposition Clinical Impression: Calculus of kidney, Hydronephrosis, Hydronephrosis with renal and ureteral calculus obstruction Disposition: ADMITTED IP TO THIS [facility] Condition: Stable Is patient prescribed a controlled substance at d/c from ED?: No Referrals: Aryan Burgess DO [Primary Care Provider] - 1-2 days Decision to Admit Reason: Admit from EC Decision Date: 01/17/21 Decision Time: 11:54
--- NOTE | 2021-01-17 13:13 | P.GSCN ---
History of Present Illness Consult date: 01/17/21 Reason for Consult: Right flank pain History of present illness: This is a 65-year-old male admitted to the hospital right-sided ureteral stone. He presented to the hospital flank pain associated with nausea and vomiting. He underwent a CT abdomen and pelvis that showed evidence of a 8mm right-sided UPJ stone with hydronephrosis. He continued to have symptoms despite IV pain medications. Denies any gross hematuria or dysuria. He does have history of recurrent kidney stones, but indicated he has passed spontaneously, never required any surgical intervention. Review of Systems - Constitutional Denies fever, Denies weight loss - EENT Ears, nose, mouth and throat: Denies dysphagia - Cardiovascular Denies chest pain, Denies shortness of breath - Respiratory Denies cough, Denies 7 - Gastrointestinal Reports abdominal pain, Reports nausea, Reports vomiting - Genitourinary Reports flank pain, Denies dysuria, Denies hematuria - Integumentary Denies rash, Denies unusual bruising - Neurological Denies headaches, Denies syncope Past Medical History Past Medical History: Hypertension Additional Past Medical History / Comment(s): left hernia History of Any Multi-Drug Resistant Organisms: None Reported Past Surgical History: Cholecystectomy, Hernia Repair Additional Past Surgical History / Comment(s): HEMORRHOIDECTOMY, colonoscopy, L inguinal hernia repair., right hematoma removed Past Anesthesia/Blood Transfusion Reactions: No Reported Reaction Past Psychological History: No Psychological Hx Reported Smoking Status: Never smoker Past Alcohol Use History: Rare Past Drug Use History: None Reported - Past Family History Father Family Medical History: COPD Additional Family Medical History / Comment(s): Father is 83 yrs old. Mother Family Medical History: No Reported History Additional Family Medical History / Comment(s): Mother has "heart problems" and is 80 yrs old. Medications and Allergies Home Medications Medication Instructions Recorded Confirmed Type Aspirin [Adult Low Dose Aspirin EC] 81 mg PO DAILY 03/29/15 01/17/21 History Losartan Potassium 100 mg PO DAILY 03/29/15 01/17/21 History Multivitamins, Thera [Multivitamin 1 tab PO DAILY 03/29/15 01/17/21 History (formulary)] Allergies Allergy/AdvReac Type Severity Reaction Status Date / Time No Known Allergies Allergy Verified 01/17/21 12:15 Surgical - Exam Vital Signs Temp Pulse Resp BP Pulse Ox 97.6 F 65 16 146/88 96 01/17/21 09:00 01/17/21 09:00 01/17/21 09:00 01/17/21 09:00 01/17/21 09:00 - General no distress, moderate pain - Eyes PERRL, normal ocular movement - ENT normal nares, normal mucosa - Respiratory normal expansion, normal respiratory effort - Abdomen Abdomen: soft, non tender - Psychiatric oriented to time, oriented to person, oriented to place Results - Labs 01/17/21 10:01/17/21 10:01 Abnormal Lab Results - Last 24 Hours (Table) 01/17/21 01/17/21 01/17/21 Range/Units 10: 10: 10:01 WBC 14.6 H (3.8-10.6) k/uL Neutrophils # 12.3 H (1.3-7.7) k/uL APTT 21.6 L (22.0-30.0) sec BUN (9-20) mg/dL Urine Blood Moderate H (Negative) Urine RBC 34 H (0-5) /hpf Urine Mucus Rare H (None) /hpf 01/17/21 Range/Units 10:01 WBC (3.8-10.6) k/uL Neutrophils # (1.3-7.7) k/uL APTT (22.0-30.0) sec BUN 26 H (9-20) mg/dL Urine Blood (Negative) Urine RBC (0-5) /hpf Urine Mucus (None) /hpf Diabetes panel 01/17/21 Range/Units 10:01 Sodium 138 (137-145) mmol/L Potassium 4.7 (3.5-5.1) mmol/L Chloride 106 (98-107) mmol/L Carbon Dioxide 24 (22-30) mmol/L BUN 26 H (9-20) mg/dL Creatinine 0.90 (0.66-1.25) mg/dL Glucose 96 (74-99) mg/dL Calcium 10.2 (8.4-10.2) mg/dL AST 33 (17-59) U/L ALT 35 (4-49) U/L Alkaline Phosphatase 46 (38-126) U/L Total Protein 7.8 (6.3-8.2) g/dL Albumin 4.4 (3.5-5.0) g/dL Calcium panel 01/17/21 Range/Units 10:01 Calcium 10.2 (8.4-10.2) mg/dL Albumin 4.4 (3.5-5.0) g/dL Pituitary panel 01/17/21 Range/Units 10:01 Sodium 138 (137-145) mmol/L Potassium 4.7 (3.5-5.1) mmol/L Chloride 106 (98-107) mmol/L Carbon Dioxide 24 (22-30) mmol/L BUN 26 H (9-20) mg/dL Creatinine 0.90 (0.66-1.25) mg/dL Glucose 96 (74-99) mg/dL Calcium 10.2 (8.4-10.2) mg/dL Adrenal panel 01/17/21 Range/Units 10:01 Sodium 138 (137-145) mmol/L Potassium 4.7 (3.5-5.1) mmol/L Chloride 106 (98-107) mmol/L Carbon Dioxide 24 (22-30) mmol/L BUN 26 H (9-20) mg/dL Creatinine 0.90 (0.66-1.25) mg/dL Glucose 96 (74-99) mg/dL Calcium 10.2 (8.4-10.2) mg/dL Total Bilirubin 0.6 (0.2-1.3) mg/dL AST 33 (17-59) U/L ALT 35 (4-49) U/L Alkaline Phosphatase 46 (38-126) U/L Total Protein 7.8 (6.3-8.2) g/dL Albumin 4.4 (3.5-5.0) g/dL - Imaging CT scan - abdomen: image reviewed (CT reviewed, 8mm right-sided UPJ stone with hydronephrosis) Assessment and Plan Assessment: 65-year-old male admitted to the hospital the 8mm right-sided UPJ stone, he is symptomatically from his stone. Stone resulting in right-sided hydronephrosis. UA presentation is negative. Discussed with him the option of doing a right- sided ureteroscopy with holmium laser. Discussed with him the risk of surgery which includes but not limited to bleeding, infection, injury to the ureter. -Nothing by mouth past midnight -We'll start ceftriaxone -Or tomorrow for right-sided ureteroscopy with holmium laser
[2021-01-17] MEDS ORDERED: bisacodyL 5 MG TABLET.DR PO PRN (14:30)
[2021-01-17] MEDS: HYDROmorphone 1 MG/ML 1 ML SYRINGE IVP PRN ×2 (14:38→20:36)
[2021-01-17] MEDS: SODIUM CHLORIDE 0.9% 1,000 ML IV SCH (14:41)
--- NOTE | 2021-01-17 15:27 | XR ---
EXAMINATION TYPE: XR KUB DATE OF EXAM: 01/17/2021 3:22 PM CLINICAL HISTORY: Right flank pain. TECHNIQUE: Two Upright KUB images of the abdomen are obtained. COMPARISON: CT abdomen and pelvis earlier today. FINDINGS: Small bilateral renal calculi less well-seen on plain film versus CT. There is fairly stabl e 8 to 9 mm proximal right ureter calculus at the inferior L3 level. Scattered bilateral pelvic phleb oliths redemonstrated. Overall nonobstructive bowel gas pattern. Osseous structures are intact. IMPRESSION: As above.
[2021-01-18] MEDS: HYDROmorphone 1 MG/ML 1 ML SYRINGE IVP PRN ×2 (03:05→09:03)
[2021-01-18] MEDS: SODIUM CHLORIDE 0.9% 1,000 ML IV SCH ×2 (03:06→17:03)
[2021-01-18] MEDS ORDERED: bisacodyL 10 MG SUPP RECTAL STA (08:26)
[2021-01-18] MEDS ORDERED: LACTATED RINGERS 1,000 ML IV ONE (17:01)
[2021-01-18] MEDS ORDERED: ONDANSETRON 4 MG/2 ML VIAL IVP ONE (17:04)
[2021-01-18] MEDS ORDERED: SUCCINYLCHOLINE CHLORIDE VIAL 200 MG/10 ML VIAL IV ONE (17:43)
[2021-01-18] MEDS ORDERED: GLYCOPYRROLATE 0.2 MG/ML 2 ML VIAL ONE (17:43)
[2021-01-18] MEDS ORDERED: LIDOCAINE 1% INJ 10MG/ML (20 ML MDV) ONE (17:43)
[2021-01-18] MEDS ORDERED: NEOSTIGMINE 1 MG/ML 10 ML VIAL ONE (17:43)
[2021-01-18] MEDS ORDERED: fentaNYL (PF) 50 MCG/ML 2 ML AMP ONE (17:43)
[2021-01-18] MEDS ORDERED: PROPOFOL 10 MG/ML 20 ML VIAL IV ONE (17:43)
[2021-01-18] MEDS ORDERED: MIDAZOLAM 2 MG/2 ML VIAL ONE (17:43)
[2021-01-18] MEDS ORDERED: ROCURONIUM 10 MG/ML (5 ML VIAL) IV ONE (17:43)
--- NOTE | 2021-01-18 17:55 | P.PN ---
Subjective Progress Note Date: 01/18/21 No acute overnight events, still having flank pain this a.m. Objective - Vital Signs Vital signs: Vital Signs Temp 98.0 F 01/18/21 16:57 Pulse 74 01/18/21 16:57 Resp 16 01/18/21 16:57 BP 146/81 01/18/21 16:57 Pulse Ox 97 01/18/21 16:57 Intake & Output 01/17/21 01/18/21 01/18/21 18:59 06:59 18:59 Intake Total 100 Balance 100 Weight 112.491 kg Intake: IV 100 Other: Voiding Method Toilet Toilet Toilet # Voids 1 - Constitutional General appearance: Present: mild distress - Psychiatric Psychiatric: Present: A&O x's 3 - Labs CBC & Chem 7: 01/17/21 10:01 01/17/21 10:01 Assessment and Plan Assessment: 65-year-old male admitted to the hospital the 8mm right-sided UPJ stone, he is symptomatically from his stone. Stone resulting in right-sided hydronephrosis. UA presentation is negative. Discussed with him the option of doing a right- sided ureteroscopy with holmium laser. Discussed with him the risk of surgery which includes but not limited to bleeding, infection, injury to the ureter. -Or today for right-sided ureteroscopy with holmium laser and stent placement
[2021-01-18] MEDS ORDERED: SODIUM CHLORIDE 0.9% 50 ML with GENTAMICIN 80 MG IV ONE ×2 (18:08)
[2021-01-18] MEDS ORDERED: IOHEXOL 350 MG/ML 50 ML in EMPTY BAG 1 BAG IRRIGATION ONE (18:24)
--- NOTE | 2021-01-18 18:55 | P.OP ---
Date of Procedure: 01/18/21 Preoperative Diagnosis: Right ureteral stone Postoperative Diagnosis: Same Procedure(s) Performed: Cystoscopy, right ureteroscopy, ureteral balloon dilation, retrograde pyelogram and stent insertion Implants: 6 Fr X 24 cm stent Anesthesia: ALMA Surgeon: Maxx Oropeza Estimated Blood Loss (ml): 2 Pathology: none sent Condition: stable Disposition: PACU Indications for Procedure: 65-year-old male admitted to the hospital the 8mm right-sided UPJ stone, he is symptomatically from his stone. Stone resulting in right-sided hydronephrosis. UA presentation is negative. Discussed with him the option of doing a right- sided ureteroscopy with holmium laser. Discussed with him the risk of surgery which includes but not limited to bleeding, infection, injury to the ureter. Operative Findings: Narrowing along the mid ureter, the proximal ureter stone impacted at the proximal ureter, with significant hoking of the ureter Description of Procedure: Patient was brought to the operating room, general anesthesia was induced. He was prepped and draped in sterile fashion and placed in dorsal lithotomy position. Cystoscopy fitted with 21 Fr sheath was inserted per urethra, cystoscopy was performed showed no abnormality within the bladder. Attention was then carried to the right orifice which was intubated with a sensor wire. Next the scope was removed with the wire in place. Next a access sheath was passed over the wire, resistance was met at the mid ureter. At this time a flexible ureteroscope was inserted through the access sheath, and there was some difficulty passing the scope past the narrowing, but I was able to advance the scope past the narrowing with the assistance of the wire. At this time the ureteroscope was advanced to the proximal ureter, a significantly narrowed uret er was encountered. At this time the wire was advanced through the scope and the scope was withdrawn with the wire in place. Next a ureteral balloon dilator was passed over the wire, the area of narrowing was dilated using the balloon dilator. At this time the ureteroscope was readvanced over the wire, and I attempted to pass the scope over the wire and into the UPJ, but the ureter was still narrowed, and there was significant hooking of the ureter. At this time decision was made to proceed with stent placement, Next a wire was advanced through the scope and the scope was withdrawn with the wire in place. Next a ureteral catheter was passed over the wire and the wire was removed with the catheter place. Retrograde Polygram was performed through the catheter to confirm that the wire was within the collecting system, and this was confirmed. Next the wire was readvanced through the catheter and the catheter was removed with the wire in place. Next a ureteral stent was passed over the wire, the proximal curl was visualized on fluoroscopy and the distal curl was visualized using the cystoscope. The bladder was emptied at the end of the case. Patient tolerated the procedure well was taken to PACU in stable condition
[2021-01-18 19:02] VITALS: RESP 18
[2021-01-18] MEDS ORDERED: hydrALAZINE HCL 20 MG/ML 1 ML VIAL IVP ONE (19:12)
[2021-01-18] MEDS ORDERED: hydrALAZINE HCL 20 MG/ML 1 ML VIAL ONE (19:14)
[2021-01-19 04:50] VITALS: BP 113/73; PULSE 74; TEMP 98
[2021-01-19] MEDS: SODIUM CHLORIDE 0.9% 1,000 ML IV SCH (06:28)
--- NOTE | 2021-01-19 06:50 | FL ---
EXAMINATION TYPE: FL urography retrograde DATE OF EXAM: 01/18/2021 CLINICAL HISTORY: Right renal calculus TECHNIQUE: Fluoroscopy. COMPARISON: CT abdomen and pelvis earlier today. FINDINGS: Fluoroscopic guidance was provided during right ureter stent insertion procedure performed by Dr. Hua. A total of 60.5 seconds of fluoroscopic time was utilized during the procedure and t wo spot images was acquired. Images acquired show placement of guidewire and subsequent ureter stent. IMPRESSION: As Above.
[2021-01-19 08:10] LABS: Basophils % (A) 0 %; Eosinophils # (A) 0.1 k/uL (0-0.7); Eosinophils % (A) 1 %; HCT 41.1 % (39.0-53.0); HGB 13.6 gm/dL (13.0-17.5); Lymphocytes # (A) 0.9 k/uL (1.0-4.8); Lymphocytes % (A) 9 %; MCH 30.8 pg (25.0-35.0); MCHC 33.1 g/dL (31.0-37.0); Mean Platelet Volume 6.5; Monocytes # (A) 0.6 k/uL (0-1.0); Monocytes % (A) 6 %; Neutrophils # (A) 8.7 k/uL (1.3-7.7); Neutrophils % (A) 83 %; Platelet Count 202 k/uL (150-450); RBC 4.41 m/uL (4.30-5.90); RDW 12.6 % (11.5-15.5); WBC 10.6 k/uL (3.8-10.6)
--- NOTE | 2021-01-19 10:44 | P.PN ---
Subjective Progress Note Date: 01/19/21 no acute overnight events, underwent stent placement yesterday. He is tolerating a diet, ambulating and pain is well controlled. Objective - Vital Signs Vital signs: Vital Signs Temp 98 F 01/19/21 04:49 Pulse 74 01/19/21 04:49 Resp 18 01/19/21 04:49 BP 113/73 01/19/21 04:49 Pulse Ox 95 01/19/21 04:49 Intake & Output 01/18/21 01/19/21 01/19/21 18:59 06:59 18:59 Intake Total 1553 200 Output Total 2 Balance 1551 200 Intake: IV 653 200 Intake, IV Titration 900 Amount Sodium Chloride 0.9% 1, 900 000 ml @ 75 mls/hr IV . [id number] [facility] Rx#:[id number] Oral 0 Output: Estimated Blood Loss 2 Other: Voiding Method Toilet Toilet # Voids 3 5 - Constitutional General appearance: Present: no acute distress - Psychiatric Psychiatric: Present: A&O x's 3 - Labs CBC & Chem 7: 01/19/21 06:57 01/17/21 10:01 Labs: Abnormal Lab Results - Last 24 Hours (Table) 01/19/21 Range/Units 06:57 Neutrophils # 8.7 H (1.3-7.7) k/uL Lymphocytes # 0.9 L (1.0-4.8) k/uL Assessment and Plan Assessment: 65-year-old male admitted to the hospital the 8mm right-sided UPJ stone, Postoperative day #1 status post right stent placement -Okay for discharge from urology standpoint -He will be contacted to schedule his right-sided ureteroscopy as an outpatient
--- NOTE | 2021-01-19 11:29 | P.HPIM ---
History of Present Illness H&P Date: 01/18/21 Chief Complaint: Right flank pain This is 65-year-old gentleman with past medical history of hypertension, left hernia, kidney stones-spontaneously passed and multiple other medical issues presented to the ER with complaints of nausea, vomiting, right-sided radiating flank pain worsening over the last 24 hours. Denies diarrhea. Denies chest pain, palpitations or increasing shortness of breath. Afebrile, WBC 14.6, UA negative. Abdomen/pelvis CT reported new moderate right-sided hydronephrosis secondary to obstructing 8mm calculus at the UPJ. KUB reported overall nono bstructive bowel gas pattern. Evaluated by urology and scheduled for right ureteroscopy and stent placement. IV fluid hydration, pain management and IV antibiotics of Rocephin initiated. Review of Systems ROS Statement: Those systems with pertinent positive or pertinent negative responses have been documented in the HPI. ROS Other: All systems not noted in ROS Statement are negative. Past Medical History Past Medical History: Hypertension Additional Past Medical History / Comment(s): left hernia, kidney stones History of Any Multi-Drug Resistant Organisms: None Reported Past Surgical History: Cholecystectomy, Hernia Repair Additional Past Surgical History / Comment(s): HEMORRHOIDECTOMY, colonoscopy, L inguinal hernia repair Past Anesthesia/Blood Transfusion Reactions: No Reported Reaction Past Psychological History: No Psychological Hx Reported Additional Psychological History / Comment(s): Pt resides with his spouse. He is independent. Smoking Status: Never smoker Past Alcohol Use History: Rare Past Drug Use History: None Reported - Past Family History Father Family Medical History: COPD Additional Family Medical History / Comment(s): Father is 83 yrs old. Mother Family Medical History: No Reported History Additional Family Medical History / Comment(s): Mother has "heart problems" and is 80 yrs old. Medications and Allergies Home Medications Medication Instructions Recorded Confirmed Type Aspirin [Adult Low Dose Aspirin EC] 81 mg PO DAILY 03/29/15 01/17/21 History Losartan Potassium 100 mg PO DAILY 03/29/15 01/17/21 History Multivitamins, Thera [Multivitamin 1 tab PO DAILY 03/29/15 01/17/21 History (formulary)] Cefuroxime Axetil [Ceftin] 500 mg PO BID 1 Days #10 tab 01/19/21 Rx Allergies Allergy/AdvReac Type Severity Reaction Status Date / Time No Known Allergies Allergy Verified 01/17/21 12:15 Physical Exam Vitals: Vital Signs Temp Pulse Pulse Resp BP BP BP 01/18/21 16:57 98.0 F 74 16 146/81 01/18/21 15:58 98.2 F 70 16 145/81 01/18/21 12:43 98.3 F 68 17 144/80 01/18/21 08:00 70 16 01/18/21 05:30 98.3 F 71 20 161/79 01/17/21 17:55 84 18 153/81 Pulse Ox 01/18/21 16:57 97 01/18/21 15:58 95 01/18/21 12:43 95 01/18/21 08:00 01/18/21 05:30 96 01/17/21 17:55 98 Intake and Output 01/18/21 01/18/21 01/18/21 06:59 14:59 22:59 Intake Total 100 Balance 100 Intake: IV 100 Other: Voiding Method Toilet # Voids 1 PHYSICAL EXAM: VITAL SIGNS: As above GENERAL: Sitting up in bed, no acute distress HEENT: Conjunctivae normal. eyes normal. NECK: No JVD. No thyroid enlargement. No LNs CARDIOVASCULAR: S1, S2 regular. No murmur RESPIRATION: Breath sounds diminished in the bases. No rhonchi or crackles. No bronchial breathing. ABDOMEN: Soft, right flank tenderness ,No guarding. no masses palpable. No ascites, No hepatosplenomegaly.Bowel sounds heard. LEGS: No edema. no swelling PSYCHIATRY: Alert and oriented X3, mood and affect normal. NERVOUS SYSTEM: Cranial N 2-12 grossly normal. Moves all 4 limbs. No focal deficits. Strength and sensation grossly intact.. Skin: Warm and dry, no rash. Results CBC & Chem 7: 01/19/21 06:57 01/17/21 10:01 Thrombosis Risk Factor Assmnt - Choose All That Apply Each Factor Represents 1 point: Obesity (BMI >25) Each Risk Factor Represents 2 Points: Age 61-74 years Thrombosis Risk Factor Assessment Total Risk Factor Score: 3 Thrombosis Risk Factor Assessment Level: Moderate Risk Assessment and Plan Assessment: Moderate right-sided hydronephrosis secondary to obstructing 8mm calculus at the UPJ. History of kidney stones-spontaneously passed Hypertension Obesity, BMI 36.6 Plan: Continue on current medication regime ,monitoring and symptomatic treatment. Maintain IV fluid hydration, antibiotics and pain management. Urology procedure pending. Discharge planning in progress for tomorrow pending neurology's clearance. The impression and plan of care has been dictated as directed. : I performed a history and examination of this patient, discussed the same with the dictator. I agree with the dictator's note ,documented as a scribe. Any additional findings or plans will be noted.
--- NOTE | 2021-01-19 11:33 | P.DS ---
Providers Date of admission: 01/17/21 12:10 Expected date of discharge: 01/19/21 Attending physician: Aryan Burgess Consults: 01/17/21 11:51 Consult Physician Routine Consulting Provider: Maxx Oropeza Consult Reason/Comments: Obstructing renal calculus Do you want consulting provider notified?: Already Contacted Primary care physician: Aryan Burgess Hospital Course: Moderate right-sided hydronephrosis secondary to obstructing 8mm calculus at the UPJ. Status post right stent placement History of kidney stones-spontaneously passed Hypertension Obesity, BMI 36.6 Hospital course:This is 65-year-old gentleman with past medical history of hypertension, left hernia, kidney stones-spontaneously passed and multiple other medical issues presented to the ER with complaints of nausea, vomiting, right- sided radiating flank pain worsening over the last 24 hours. Denies diarrhea. Denies chest pain, palpitations or increasing shortness of breath. Afebrile, WBC 14.6, UA negative. Abdomen/pelvis CT reported new moderate right-sided hydronephrosis secondary to obstructing 8mm calculus at the UPJ. KUB reported overall nonobstructive bowel gas pattern. Evaluated by urology and scheduled for right ureteroscopy and stent placement. IV fluid hydration, pain management and IV antibiotics of Rocephin initiated. Status post right stent placement, tolerated procedure well. Creatinine pending.Denies pain. Good diet intake with no nausea vomiting. Patient will be discharged home today in a stable condition with guarded prognosis pending neurology's final DC recommendations and clearance. Right-sided ureteroscopy outpatient as per urology. The impression and plan of care has been dictated as directed. : I performed a history and examination of this patient, discussed the same with the dictator. I agree with the dictator's note ,documented as a scribe. Any additional findings or plans will be noted. Patient Condition at Discharge: Stable Plan - Discharge Summary Discharge Rx Participant: No New Discharge Prescriptions: New Cefuroxime Axetil [Ceftin] 500 mg PO BID 1 Days #10 tab Continue Multivitamins, Thera [Multivitamin (formulary)] 1 tab PO DAILY Losartan Potassium 100 mg PO DAILY Aspirin [Adult Low Dose Aspirin EC] 81 mg PO DAILY Discharge Medication List Aspirin [Adult Low Dose Aspirin EC] 81 mg PO DAILY 03/29/15 [History] Losartan Potassium 100 mg PO DAILY 03/29/15 [History] Multivitamins, Thera [Multivitamin (formulary)] 1 tab PO DAILY 03/29/15 [History] Cefuroxime Axetil [Ceftin] 500 mg PO BID 1 Days #10 tab 01/19/21 [Rx] Follow up Appointment(s)/Referral(s): Aryan Burgess DO [Primary Care Provider] - 01/24/21 11:40 am Patient Instructions/Handouts: Ureteral Stent Placement (DC) Activity/Diet/Wound Care/Special Instructions: PATIENT WILL BE CONTACTED BY UROLOGIST OFFICE TO SCHEDULE RIGHT SIDED URETEROSCOPY.
[2021-01-19 11:56] LABS: BUN/Creat Ratio 17.49 Ratio (12.00-20.00); Blood Urea Nitrogen 17.4 mg/dL (9.0-27.0); Calcium 9.1 mg/dL (8.7-10.3); Carbon Dioxide 24.2 mmol/L (21.6-31.8); Non-African American GFR(CKD) 80.2 (60.0-200.0); Potassium 4.2 mmol/L (3.5-5.5)
== END 2021-01-19 12:26 | disposition home or self-care (01) | DRG 661 ==
LOC: EC 08:50 → 1SOBS 12:10 → 5NMEDONC 15:33
PROVIDERS: ADMIT Family Medicine; ATTEND Family Medicine
PROC: 0T768DZ Dilation of Right Ureter with Intraluminal Device, Via Natural or Artificial Opening Endoscopic (ICD-10-PCS; principal; 2021-01-18 15:30)
PROC: BT1D1ZZ Fluoroscopy of Right Kidney, Ureter and Bladder using Low Osmolar Contrast (ICD-10-PCS; 2021-01-18 15:30)
PROC: 0T9B80Z Drainage of Bladder with Drainage Device, Via Natural or Artificial Opening Endoscopic (ICD-10-PCS; 2021-01-18 15:30)
DX: N13.2 Hydronephrosis with renal and ureteral calculous obstruction (principal); F32.9 Major depressive disorder, single episode, unspecified; I10 Essential (primary) hypertension; D72.829 Elevated white blood cell count, unspecified; Z20.822 Contact with and (suspected) exposure to COVID-19; Z79.82 Long term (current) use of aspirin; E66.9 Obesity, unspecified; Z68.36 Body mass index [BMI] 36.0-36.9, adult; Z87.19 Personal history of other diseases of the digestive system
CPT/HCPCS: 36415; 74018; 74176; 74420; 80048; 80053; 81001; 82150; 83605; 83690; 85025; 85610; 85730; 87635; 96361; 96374; 96375; 99285

== ENCOUNTER → 2021-02-14 | Outpatient (CLI) | payer BC ==
[2021-02-14 08:52] LABS: Basophils % (A) 0 %; Eosinophils # (A) 0.2 k/uL (0-0.7); Eosinophils % (A) 3 %; HCT 40.5 % (39.0-53.0); HGB 13.2 gm/dL (13.0-17.5); Lymphocytes # (A) 1.3 k/uL (1.0-4.8); Lymphocytes % (A) 19 %; MCH 30.3 pg (25.0-35.0); MCHC 32.7 g/dL (31.0-37.0); MCV 92.7 fL (80.0-100.0); Mean Platelet Volume 6.5; Monocytes # (A) 0.3 k/uL (0-1.0); Monocytes % (A) 5 %; Neutrophils # (A) 4.9 k/uL (1.3-7.7); Neutrophils % (A) 71 %; Platelet Count 187 k/uL (150-450); RBC 4.37 m/uL (4.30-5.90); RDW 12.7 % (11.5-15.5); WBC 6.8 k/uL (3.8-10.6)
[2021-02-14 09:05] LABS: African American GFR (CKD) >90 (>60 ml/min/1.73 sqM); Anion Gap 8 mmol/L; Blood Urea Nitrogen 24 mg/dL (9-20); Calcium 9.7 mg/dL (8.4-10.2); Carbon Dioxide 25 mmol/L (22-30); Chloride 104 mmol/L (98-107); Glucose 125 mg/dL (74-99); Non-African American GFR(CKD) >90 (>60 ml/min/1.73 sqM); Potassium 4.4 mmol/L (3.5-5.1); Sodium 137 mmol/L (137-145)
[2021-02-14 09:27] LABS: Appearance,Urine Clear (Clear); Bacteria,Urine Rare /hpf; Bilirubin,Urine Negative (Negative); Blood,Urine Large (Negative); Color,Urine Yellow; Glucose,Urine (UA) Negative (Negative); Ketones,Urine Negative (Negative); Leukocyte Esterase,Urine Small (Negative); Mucus,Urine Rare /hpf; Nitrite,Urine Negative (Negative); PH, Urine 5.5 (5.0-8.0); Protein,Urine Trace (Negative); RBC,Urine >182 /hpf (0-5); Specific Gravity,Urine 1.017 (1.001-1.035); Urobilinogen,Urine <2.0 mg/dL (<2.0); WBC,Urine 8 /hpf (0-5)
== END | disposition home or self-care (01) ==
LOC: LABPAT 07:50
PROVIDERS: ATTEND Urology
DX: Z01.812 Encounter for preprocedural laboratory examination (principal); N20.1 Calculus of ureter
CPT/HCPCS: 36415; 80048; 81001; 85025; 87086

== ENCOUNTER 2021-02-20 08:18 | Day surgery (SDC) | payer BC ==
[2021-02-17 09:44] VITALS: BMI 36.4
[~2021-02-20 08:18] MED LIST: DEXAMETHASONE SOD PHOSPHATE 4 MG/ML 1 ML VIAL IV ONE; HYDROmorphone 0.5 MG/0.5 ML SYRINGE IVP PRN; LACTATED RINGERS 1,000 ML IV SCH; MIDAZOLAM 2 MG/2 ML VIAL IV PRN; ONDANSETRON 4 MG/2 ML VIAL IVP ONE; SCOPOLAMINE 1.5MG/72HR PATCH TRANSDERM ONE
--- NOTE | 2021-02-20 09:03 | XR ---
EXAMINATION TYPE: XR KUB DATE OF EXAM: 02/20/2021 Comparison: 01/17/2021 Clinical History: 65-year-old male presurgical, right-sided stone removal. Findings: Right-sided ureteral stent is present. Right-sided renal calculi measuring up to 6 mm. There is a lef t-sided 4 mm renal calculus. The previous 9 mm calculus located more right paramedian mid abdomen, pr obably within the ureter, on the prior exam is no longer seen. Numerous pelvic phleboliths. Nonobstru ctive bowel gas pattern. Moderate stool burden. Impression: 1. Right-sided ureteral stent. 2. Right-sided nephrolithiasis measuring up to 6 mm. 4 mm left renal calculus. 3. Numerous pelvic fluid lymph nodes.
[2021-02-20] MEDS ORDERED: LACTATED RINGERS 1,000 ML IV ONE (09:09)
--- NOTE | 2021-02-20 09:30 | P.HPIHPCON ---
History of Present Illness H&P Date: 02/20/21 This is a 65-year-old male with hx of right-sided ureteral stone. He underwent right-sided stent placement on January 18. Attempted ureteroscopy at that time showed narrowing in the proximal ureter, thus a stent was placed. Option of ureteroscopy versus ESWL were discussed with him. Risk and benefit of each approach were discussed in detail. He agreed to proceed with right-sided ureteroscopy. Discussed the risk which include but not limited to bleeding, infection, injury to the ureter. He understood all the risk and agreed to proceed, Consent for Procedure: I have explained the operation/procedure to the patient, including the risks, benefits, side effects, alternative therapies (including not receiving the proposed treatment or service), the likelihood of the patient achieving his/her goals, and potential recuperation problems for the procedure/sedation/analgesia, as well as any blood products, if indicated. I also explained to the patient the risks, benefits and side effects of the alternatives, as well as the risks related to not receiving the proposed procedure, care, treatment, or services. Past Medical History Past Medical History: Cancer, Hypertension Additional Past Medical History / Comment(s): hx melanoma., kidney stones History of Any Multi-Drug Resistant Organisms: None Reported Past Surgical History: Cholecystectomy, Hernia Repair Additional Past Surgical History / Comment(s): HEMORRHOIDECTOMY, colonoscopy, Damián inguinal hernia repair, cystoscopy with ureteral stent (01/18/21). Past Anesthesia/Blood Transfusion Reactions: No Reported Reaction Past Psychological History: No Psychological Hx Reported Additional Psychological History / Comment(s): . Smoking Status: Never smoker Past Alcohol Use History: Rare Past Drug Use History: None Reported - Past Family History Father Family Medical History: COPD Additional Family Medical History / Comment(s): . Mother Family Medical History: No Reported History Additional Family Medical History / Comment(s): Mother has "heart problems" . Medications and Allergies Home Medications Medication Instructions Recorded Confirmed Type Aspirin [Adult Low Dose Aspirin EC] 81 mg PO DAILY 03/29/15 02/17/21 History Losartan Potassium 100 mg PO DAILY 03/29/15 02/17/21 History Multivitamins, Thera [Multivitamin 1 tab PO DAILY 03/29/15 02/17/21 History (formulary)] Allergies Allergy/AdvReac Type Severity Reaction Status Date / Time No Known Allergies Allergy Verified 02/17/21 09:27 Surgical - Exam - General no distress, no pain - Eyes PERRL, normal ocular movement - ENT normal nares, normal mucosa - Respiratory normal expansion, normal respiratory effort - Abdomen Abdomen: soft, non tender - Psychiatric oriented to time, oriented to person, oriented to place Assessment and Plan Assessment: 65-year-old male with history of right-sided ureteral stone OR for for right-sided ureteroscopy, with holmium laser lithotripsy, stone basketing and stent removal
[2021-02-20] MEDS ORDERED: LIDOCAINE 1% INJ 10MG/ML (20 ML MDV) ONE (11:00)
[2021-02-20] MEDS ORDERED: MIDAZOLAM 2 MG/2 ML VIAL ONE (11:00)
[2021-02-20] MEDS ORDERED: SUCCINYLCHOLINE CHLORIDE 100 MG/5 ML SYR IV ONE (11:00)
[2021-02-20] MEDS ORDERED: fentaNYL (PF) 50 MCG/ML 2 ML AMP ONE (11:00)
[2021-02-20] MEDS ORDERED: PROPOFOL 10 MG/ML 20 ML VIAL IV ONE (11:00)
[2021-02-20] MEDS ORDERED: IOHEXOL 350 MG/ML 50 ML in EMPTY BAG 1 BAG IRRIGATION ONE (11:26)
[2021-02-20 12:06] VITALS: TEMP 96.9
--- NOTE | 2021-02-20 12:12 | P.OP ---
Date of Procedure: 02/20/21 Preoperative Diagnosis: right ureteral stone Postoperative Diagnosis: same Procedure(s) Performed: Cystoscopy, right retrograde pyelogram, ureteroscopy, holmium laser lithotripsy, stone basketing and stent removal Implants: none Anesthesia: JEFFERYA Surgeon: Maxx Oropeza Estimated Blood Loss (ml): 2 Pathology: other (left ureteral stone) Condition: stable Disposition: PACU Indications for Procedure: This is a 65-year-old male with hx of right-sided ureteral stone. He underwent right-sided stent placement on January 18. Attempted ureteroscopy at that time showed narrowing in the proximal ureter, thus a stent was placed. Option of ureteroscopy versus ESWL were discussed with him. Risk and benefit of each approach were discussed in detail. He agreed to proceed with right-sided ureteroscopy. Discussed the risk which include but not limited to bleeding, infection, injury to the ureter. He understood all the risk and agreed to proceed, Operative Findings: right -sided lower pole stone Description of Procedure: Patient was brought to the operating room, general anesthesia was induced. He was prepped and draped in sterile fashion and placed in dorsal lithotomy position. Cystoscopy fitted with a 21-Upper Sorbian sheath was inserted per urethra, the stent was visualized and grasped and removed to the meatus. Next a sensor wire was advanced through the stent and the stent was removed with the wire in place. Next an open-ended catheter was passed over the wire into the distal ureter. Retrograde Polygram was performed through the catheter which showed no filling defect along the course of the ureter. Next the sensor wire was advanced through the catheter and the catheter was removed with the wire in place. Next, under fluoroscopy an 1113 Upper Sorbian access sheath was passed into the proximal ureter. Next a flexible ureteroscope was inserted through the access sheath, renoscopy was performed which showed that the stone has migrated to the lower pole. The stone was grasped and repositioned to the upper pole. Using the holmium laser the stone was fragmented into small fragments, sizable fragments were removed using a stone basket. Repeat renoscopy showed additional small stones which were dusted using the holmium laser. Repeat renoscopy showed no sizable fragments or injury to the kidney. Pullback ureteroscopy was performed showed no ureteral stones or any injury to the ureter. There was no ureteral edema, thus a stent was not placed. The bladder was emptied and the end of the case. Patient tolerated the procedure well was taken to recovery in stable condition
[2021-02-20 12:17] VITALS: RESP 16
[2021-02-20] MEDS ORDERED: SODIUM CHLORIDE 0.9% 1,000 ML IV ONE (12:29)
[2021-02-20 12:38] VITALS: PULSE 64
[2021-02-20 12:48] VITALS: BP 139/83
--- NOTE | 2021-02-20 15:52 | FL ---
EXAMINATION TYPE: FL urography retrograde DATE OF EXAM: 02/20/2021 FLUOROSCOPY Fluoroscopy time of 12 seconds was used during right ureteral stone urologic intervention. 2 image/s document/s the procedure.
== END 2021-02-20 13:04 | disposition home or self-care (01) ==
LOC: OR 08:18
PROVIDERS: ATTEND Urology
DX: N20.2 Calculus of kidney with calculus of ureter (principal)
CPT/HCPCS: 52356; 82365; 74420; 74018; C1758; C1769; J2250; J1100; J0690; J2405; J2001; J3010; J0330; J2704; Q9967

== ENCOUNTER → 2021-08-10 | Outpatient (CLI) | payer BC | END | disposition home or self-care (01) | LOC: LABWHC1 10:49 | PROVIDERS: ATTEND Family Medicine | DX: Z03.818 Encounter for observation for suspected exposure to other biological agents ruled out (principal) | CPT/HCPCS: U0003; C9803; U0005 ==

== ENCOUNTER 2022-07-05 09:20 | Day surgery (SDC) | payer BC, MEDICARE ==
[2022-07-02 15:35] VITALS: BMI 38.4
[~2022-07-05 09:20] MED LIST changes: -DEXAMETHASONE SOD PHOSPHATE 4 MG/ML 1 ML VIAL IV ONE; -HYDROmorphone 0.5 MG/0.5 ML SYRINGE IVP PRN; +LIDOCAINE 1% (10MG/ML) FOR IV START INTRADERMA PRN; -MIDAZOLAM 2 MG/2 ML VIAL IV PRN; -ONDANSETRON 4 MG/2 ML VIAL IVP ONE; -SCOPOLAMINE 1.5MG/72HR PATCH TRANSDERM ONE
[2022-07-05 10:02] VITALS: TEMP 97.9
[2022-07-05] MEDS ORDERED: PROPOFOL 10 MG/ML 20 ML VIAL IV ONE (11:00)
--- NOTE | 2022-07-05 11:02 | P.GSHP ---
History of Present Illness H&P Date: 07/05/22 Chief Complaint: Screening colonoscopy Is a 67-year-old male been safe for screening colonoscopy. Patient denies a significant GI complaints. Past Medical History Past Medical History: Cancer, Hypertension Additional Past Medical History / Comment(s): Hx kidney stones, hx melanoma on face 2019. History of Any Multi-Drug Resistant Organisms: None Reported Past Surgical History: Cholecystectomy, Hernia Repair Additional Past Surgical History / Comment(s): HEMORRHOIDECTOMY, colonoscopy, left inguinal hernia repair, skin cancer removed from face. Past Anesthesia/Blood Transfusion Reactions: No Reported Reaction Past Psychological History: No Psychological Hx Reported Smoking Status: Never smoker Past Alcohol Use History: Rare Past Drug Use History: None Reported - Past Family History Father Family Medical History: COPD Additional Family Medical History / Comment(s): . Mother Family Medical History: No Reported History Additional Family Medical History / Comment(s): Mother has "heart problems" . Medications and Allergies Home Medications Medication Instructions Recorded Confirmed Type Aspirin [Adult Low Dose Aspirin EC] 81 mg PO DAILY 03/29/15 07/02/22 History Losartan Potassium 100 mg PO QAM 03/29/15 07/05/22 History Multivitamins, Thera [Multivitamin 1 tab PO DAILY 03/29/15 07/02/22 History (formulary)] Allergies Allergy/AdvReac Type Severity Reaction Status Date / Time No Known Allergies Allergy Verified 07/02/22 15:22 Surgical - Exam Vital Signs Temp Pulse Resp BP Pulse Ox 97.9 F 53 L 18 142/75 98 07/05/22 09:59 07/05/22 09:59 07/05/22 09:59 07/05/22 09:59 07/05/22 09:59 - General well developed, well nourished, no distress - Eyes PERRL - ENT normal pinna - Neck no masses - Respiratory normal expansion - Cardiovascular Rhythm: regular - Abdomen Abdomen: soft, non tender Assessment and Plan Assessment: We'll perform screening colonoscopy
--- NOTE | 2022-07-05 11:15 | P.OP ---
Date of Procedure: 07/05/22 Preoperative Diagnosis: Screening colonoscopy Postoperative Diagnosis: Diverticulosis Procedure(s) Performed: Colonoscopy Anesthesia: MAC Surgeon: Med Gorman Pathology: none sent Condition: stable Disposition: PACU Description of Procedure: Patient's placed on the endoscopy table in the lateral position. Received IV sedation. Digital rectal exam was performed. This revealed no abnormalities. Flexible colonoscope was then placed patient anus and passed throughout the entire colon. The ileocecal valve was visualized. The cecum, ascending and transverse colon appeared normal. In the descending sigmoid colon was mild diverticular changes. Scope was then brought back the rectum and this appeared normal. Scope withdrawn for patient.
[2022-07-05 11:22] VITALS: RESP 16
[2022-07-05 11:43] VITALS: BP 131/75; PULSE 53
== END 2022-07-05 11:48 | disposition home or self-care (01) ==
LOC: ORWHC2ENDO 09:20
PROVIDERS: ATTEND Surgery
DX: Z12.11 Encounter for screening for malignant neoplasm of colon (principal); K57.30 Diverticulosis of large intestine without perforation or abscess without bleeding; I10 Essential (primary) hypertension; Z87.442 Personal history of urinary calculi; Z90.49 Acquired absence of other specified parts of digestive tract; Z86.59 Personal history of other mental and behavioral disorders; Z79.82 Long term (current) use of aspirin
CPT/HCPCS: 45378; J2704

== ENCOUNTER 2023-09-28 15:30 | Emergency (ER) | payer BC, MEDICARE ==
[2023-09-28 15:35] VITALS: BP 158/79; PULSE 53; RESP 18; TEMP 97
--- NOTE | 2023-09-28 15:58 | ED ---
Abdominal Pain HPI - General Source: patient, RN notes reviewed Mode of arrival: ambulatory Limitations: no limitations <[place] - Last Filed: 09/28/23 15:56> <Wili Angel - Last Filed: 09/28/23 18:58> - General Chief Complaint: Abdominal Pain Stated Complaint: Right side pain Time Seen by Provider: 09/28/23 15:41 - History of Present Illness Initial Comments: Quick [id number] male presents emergency department chief complaint of right flank pain. Patient states he has some onset of pain slight nausea vomiting has history of stones but states it has been several years and seems not as intense currently. Patient denies any fevers chills no chest pain no shortness of breath no dysuria ([place]) Dictation was produced using [employer] dictation software. please excuse any grammatical, word or spelling errors. Chief Complaint: 68-year-old male presents to the emergency department right flank pain History of Present Illness: Patient 68-year-old male presents to the emergency department with right flank pain. Patient states he has had pain for the last several hours. Patient has a history of kidney stones. States that the pain appears to be constant. No nausea. States that the pain is a 6 out of 10 on a 10 scale. Denies any fever chills or night sweats. He has not noticed any blood in his urine. The ROS documented in this emergency department record has been reviewed and confirmed by me. Those systems with pertinent positive or negative responses have been documented in the HPI. All other systems are other negative and/or noncontributory. (Wili Angel) - Related Data Home Medications Medication Instructions Recorded Confirmed Aspirin [Adult Low Dose Aspirin EC] 81 mg PO DAILY 03/29/15 07/02/22 Losartan Potassium 100 mg PO QAM 03/29/15 07/05/22 Multivitamins, Thera [Multivitamin 1 tab PO DAILY 03/29/15 07/02/22 (formulary)] Previous Rx's Medication Instructions Recorded Ketorolac [Toradol] 10 mg PO Q6HR PRN 3 Days #12 tab 09/28/23 Allergies Allergy/AdvReac Type Severity Reaction Status Date / Time No Known Allergies Allergy Verified 09/28/23 15:35 Review of Systems ROS Other: All systems not noted in ROS Statement are negative. <[place] - Last Filed: 09/28/23 15:56> ROS Other: All systems not noted in ROS Statement are negative. <Wili Angel - Last Filed: 09/28/23 18:58> ROS Statement: Those systems with pertinent positive or pertinent negative responses have been documented in the HPI. Past Medical History Past Medical History: Cancer, Hypertension Additional Past Medical History / Comment(s): Hx kidney stones, hx melanoma on face 2019. History of Any Multi-Drug Resistant Organisms: None Reported Past Surgical History: Cholecystectomy, Hernia Repair Additional Past Surgical History / Comment(s): HEMORRHOIDECTOMY, colonoscopy, left inguinal hernia repair, skin cancer removed from face. Past Anesthesia/Blood Transfusion Reactions: No Reported Reaction Past Psychological History: No Psychological Hx Reported Smoking Status: Never smoker Past Alcohol Use History: Rare Past Drug Use History: None Reported - Past Family History Father Family Medical History: COPD Additional Family Medical History / Comment(s): . Mother Family Medical History: No Reported History Additional Family Medical History / Comment(s): Mother has "heart problems" . <[place] - Last Filed: 09/28/23 15:56> General Exam Limitations: no limitations <[place] - Last Filed: 09/28/23 15:56> <Wili Angel - Last Filed: 09/28/23 18:58> - General Exam Comments Initial Comments: Visual Physical Exam Vital signs reviewed General: Well-appearing, nontoxic, no acute distress. Head: Normocephalic, atraumatic Eyes: PERRLA, EOMI ENT: Airway patent Chest: Nonlabored breathing Skin: No visual rash, normal skin tone Neuro: Alert and oriented 3 Musculoskeletal: No gross abnormalities ([place]) PHYSICAL EXAM: General Impression: Alert and oriented x3, not in acute distress HEENT: Normocephalic atraumatic, extra-ocular movements intact, pupils equal and reactive to light bilaterally, mucous membranes moist. Cardiovascular: Heart regular rate and rhythm Chest: Able to complete full sentences, no retractions, no tachypnea Abdomen: abdomen soft, non-tender, non-distended, no organomegaly Musculoskeletal: Pulses present and equal in all extremities, no peripheral edema Motor: no focal deficits noted Neurological: CN II-XII grossly intact, no focal motor or sensory deficits noted Skin: Intact with no visualized rashes Psych: Normal affect and mood (Wili Angel) Course Vital Signs 09/28/23 15:32 Temperature 97 F L Pulse Rate 53 L Respiratory 18 Rate Blood Pressure 158/79 O2 Sat by Pulse 95 Oximetry Medical Decision Making <[place] - Last Filed: 09/28/23 15:56> - Lab Data Result diagrams: 09/28/23 16:58 09/28/23 16:58 <Wili Angel - Last Filed: 09/28/23 18:58> - Medical Decision Making I completed the quick note portion of this chart signed [place] PA-C ([place]) Was pt. sent in by a medical professional or institution (BALJIT Stewart, SOCIOLOGY ADJUNCT INSTRUCTOR, urgent care, hospital, or skilled nursing...) When possible be specific @ -No Did you speak to anyone other than the patient for history (EMS, parent, family, police, friend...)? What history was obtained from this source @ -No Did you review nursing and triage notes (agree or disagree)? Why? @ -I reviewed and agree with nursing and triage notes Were old charts reviewed (outside hosp., previous admission, EMS record, old EKG, old radiological studies, urgent care reports/EKG's, skilled nursing records)? Report findings @ -No old charts were reviewed Differential Diagnosis (chest pain, altered mental status, abdominal pain women, abdominal pain men, vaginal bleeding, musculoskeletal, weakness, fever, dyspnea, syncope, headache, dizziness, GI bleed, back pain, seizure, CVA, palpatations, mental health)? @ -Differential Abdominal Pain Men: Appendicitis, cholecystitis, diverticulosis, ischemic bowel, pancreatitis, hepatitis, UTI, gastroenteritis, AAA, incarcerated hernia, bowel obstruction, constipation, inflammatory bowel, hepatitis, peptic ulcer disease, splenic infarction, perforated viscus, testicular torsion, this is not meant to be an all-inclusive list EKG interpreted by me (3pts min.). @ -None done X-rays interpreted by me (1pt min.). @ -None done CT interpreted by me (1pt min.). @ -CT scan of the abdomen pelvis shows 3.5 mm stone at the right UPJ with mild right-sided hydronephrosis U/S interpreted by me (1pt. min.). @ -None done What testing was considered but not performed or refused? (CT, X-rays, U/S, labs)? Why? @ -None What meds were considered but not given or refused? Why? @ -None Was smoking cessation discussed for >3mins.? @ -No Were there social determinants of health that impacted care today? How? (Homelessness, low income, unemployed, alcoholism, drug addiction, transportation, low edu. Level, literacy, decrease access to med. care, fdc, rehab)? @ -No Was there de-escalation of care discussed even if they declined (Discuss DNR or withdrawal of care, Hospice)? DNR status @ -No What co-morbidities impacted this encounter? (DM, HTN, Smoking, COPD, CAD, Cancer, CVA, ARF, Chemo, Hep., AIDS, mental health diagnosis, sleep apnea, morbid obesity)? @ -None Was patient admitted / discharged? Hospital course, mention meds given and route, prescriptions, significant lab abnormalities, going to OR and other pertinent info. @ -68-year-old male presents emergency department with right-sided ne phrolithiasis. Stones measuring 3.5 mm. Vital signs stable. Patient does not appear to be in acute distress despite saying that his pain is 7 out of 10. Nonetheless patient given IV fluids. Laboratory evaluation unremarkable. IV fluids and analgesics with improvement of his symptoms. Reevaluated bedside at 6:58 PM he is agreeable with discharge. Patient given referral to urology. Did you discuss the management of the patient with other professionals (professionals i.e. , PA, SOCIOLOGY ADJUNCT INSTRUCTOR, lab, RT, psych nurse, social media marketing specialist, semiconductor development technician, teacher, chief talent officer, case management director)? Give summary @ -No Was critical care preformed (if so, how long)? @ -No Undiagnosed new problem with uncertain prognosis? @ -No Drug Therapy requiring intensive monitoring for toxicity (Heparin, Nitro, Insulin, Cardizem)? @ -No Were any procedures done? @ -No Diagnosis/symptom? Acute, or Chronic, or Acute on Chronic? Uncomplicated (without systemic symptoms) or Complicated (systemic symptoms)? @ -Symptomatic nephrolithiasis Side effects of treatment? @ -No Exacerbation, Progression, or Severe Exacerbation? @ -No Poses a threat to life or bodily function? How? (Chest pain, [place], [place], pneumonia, PE, COPD, DKA, ARF, appy, cholecystitis, CVA, Diverticulitis, Homicidal, Suicidal, threat to staff... and all critical care pts) @ -yes (Wili Angel) - Lab Data Lab Results 09/28/23 09/28/23 09/28/23 Range/Units 15:56 16:58 16:58 WBC 17.3 H (3.8-10.6) k/uL RBC 4.66 (4.30-5.90) m/uL Hgb 13.9 (13.0-17.5) gm/dL Hct 44.0 (39.0-53.0) % MCV 94.4 (80.0-100.0) fL MCH 29.9 (25.0-35.0) pg MCHC 31.7 (31.0-37.0) g/dL RDW 13.4 (11.5-15.5) % Plt Count 239 (150-450) k/uL MPV 6.7 Neutrophils % 83 % Lymphocytes % 9 % Monocytes % 7 % Eosinophils % 1 % Basophils % 0 % Neutrophils # 14.3 H (1.3-7.7) k/uL Lymphocytes # 1.6 (1.0-4.8) k/uL Monocytes # 1.1 H (0-1.0) k/uL Eosinophils # 0.1 (0-0.7) k/uL Basophils # 0.0 (0-0.2) k/uL Sodium 138 (137-145) mmol/L Potassium 4.4 (3.5-5.1) mmol/L Chloride 105 (98-107) mmol/L Carbon Dioxide 27 (22-30) mmol/L Anion Gap 6 mmol/L BUN 29 H (9-20) mg/dL Creatinine 1.17 (0.66-1.25) mg/dL Est GFR (CKD-EPI)AfAm 75 (>60 ml/min/1.73 sqM) Est GFR (CKD-EPI)NonAf 65 (>60 ml/min/1.73 sqM) Glucose 89 (74-99) mg/dL Calcium 9.8 (8.4-10.2) mg/dL Total Bilirubin 0.7 (0.2-1.3) mg/dL AST 27 (17-59) U/L ALT 41 (4-49) U/L Alkaline Phosphatase 53 (38-126) U/L Total Protein 6.8 (6.3-8.2) g/dL Albumin 4.2 (3.5-5.0) g/dL Urine Color Light Yellow Urine Appearance Clear (Clear) Urine pH 6.0 (5.0-8.0) Ur Specific [place] 1.023 (1.001-1.035) Urine Protein Trace H (Negative) Urine Glucose (UA) Negative (Negative) Urine Ketones Negative (Negative) Urine Blood Large H (Negative) Urine Nitrite Negative (Negative) Urine Bilirubin Negative (Negative) Urine Urobilinogen <2.0 (<2.0) mg/dL Ur Leukocyte Esterase Negative (Negative) Urine RBC >182 H (0-5) /hpf Urine WBC 2 (0-5) /hpf Ur Squamous Epith Cells <1 (0-4) /hpf Urine Mucus Rare H (None) /hpf Disposition <[place] - Last Filed: 09/28/23 15:56> Is patient prescribed a controlled substance at d/c from ED?: No Time of Disposition: 18:06 <Wili Angel - Last Filed: 09/28/23 18:58> Clinical Impression: Kidney stone Disposition: HOME SELF-CARE Condition: Good Instructions (If sedation given, give patient instructions): Kidney Stones (ED) Prescriptions: Ketorolac [Toradol] 10 mg PO Q6HR PRN 3 Days #12 tab PRN Reason: Pain Referrals: Maxx Oropeza MD [STAFF PHYSICIAN] - 1-2 days
--- NOTE | 2023-09-28 16:37 | CT ---
EXAMINATION TYPE: CT abdomen pelvis wo con DATE OF EXAM: 09/28/2023 COMPARISON: 01/17/2021 HISTORY: Rt side flank pain, Hx of renal stones. CT DLP: 1442.2 mGycm Examination of the solid and hollow viscera is limited given the lack of contrast. FINDINGS: LUNG BASES: No evidence for nodule. No evidence for infiltrate. LIVER/GB: The gallbladder is unremarkable. No space-occupying hepatic lesion. PANCREAS: No pancreatic mass identified. No inflammatory process seen. SPLEEN: No evidence for splenomegaly. No intrasplenic lesions seen. ADRENALS: No adrenal nodules identified. No evidence for thickening. KIDNEYS: Obstructing calculus right UPJ measuring 3.5 mm resulting in mild right-sided hydronephrosis . Additional multiple sub-4 mm calculi seen bilaterally. Mild right renal edema and perinephric stran ding. No evidence for solid renal mass. BOWEL: Appendix has a normal appearance. No evidence of bowel obstruction. No inflammatory process. Lymph nodes: No evidence for adenopathy greater than 1 cm. Abdominal aorta: Atheromatous changes seen. No evidence for aneurysm. Genital organs: No significant abnormality. Other: No significant abnormality. IMPRESSION: Obstructing calculus right UPJ measuring 3.5 mm resulting in mild right-sided hydronephrosis. Additio nal multiple sub-4 mm calculi seen bilaterally. Mild right renal edema and perinephric stranding.
[2023-09-28 17:14] LABS: Basophils % (A) 0 %; Eosinophils # (A) 0.1 k/uL (0-0.7); Eosinophils % (A) 1 %; HGB 13.9 gm/dL (13.0-17.5); Lymphocytes # (A) 1.6 k/uL (1.0-4.8); Lymphocytes % (A) 9 %; MCH 29.9 pg (25.0-35.0); MCHC 31.7 g/dL (31.0-37.0); MCV 94.4 fL (80.0-100.0); Mean Platelet Volume 6.7; Monocytes # (A) 1.1 k/uL (0-1.0); Monocytes % (A) 7 %; Neutrophils # (A) 14.3 k/uL (1.3-7.7); Neutrophils % (A) 83 %; Platelet Count 239 k/uL (150-450); RBC 4.66 m/uL (4.30-5.90); RDW 13.4 % (11.5-15.5); WBC 17.3 k/uL (3.8-10.6)
[2023-09-28 17:38] LABS: Appearance,Urine Clear (Clear); Bilirubin,Urine Negative (Negative); Blood,Urine Large (Negative); Color,Urine Light Yellow; Glucose,Urine (UA) Negative (Negative); Ketones,Urine Negative (Negative); Leukocyte Esterase,Urine Negative (Negative); Mucus,Urine Rare /hpf; Nitrite,Urine Negative (Negative); Protein,Urine Trace (Negative); RBC,Urine >182 /hpf (0-5); Specific Gravity,Urine 1.023 (1.001-1.035); Squamous Epithelial Cell,Urine <1 /hpf (0-4); Urobilinogen,Urine <2.0 mg/dL (<2.0); WBC,Urine 2 /hpf (0-5)
[2023-09-28 17:38] LABS: ALT 41 U/L (4-49); AST 27 U/L (17-59); African American GFR (CKD) 75 (>60 ml/min/1.73 sqM); Albumin 4.2 g/dL (3.5-5.0); Alkaline Phosphatase 53 U/L (38-126); Anion Gap 6 mmol/L; Blood Urea Nitrogen 29 mg/dL (9-20); Calcium 9.8 mg/dL (8.4-10.2); Carbon Dioxide 27 mmol/L (22-30); Chloride 105 mmol/L (98-107); Glucose 89 mg/dL (74-99); Non-African American GFR(CKD) 65 (>60 ml/min/1.73 sqM); Potassium 4.4 mmol/L (3.5-5.1); Sodium 138 mmol/L (137-145); Total Bilirubin 0.7 mg/dL (0.2-1.3); Total Protein 6.8 g/dL (6.3-8.2)
[2023-09-28] MEDS: SODIUM CHLORIDE 0.9% 500 ML 500 ML IV STA (17:39)
[2023-09-28] MEDS: SODIUM CHLORIDE 0.9% 1,000 ML IV STA (17:40)
[2023-09-28] MEDS: KETOROLAC 15 MG/ML 1 ML VIAL IVP STA (18:19)
== END 2023-09-28 19:12 | disposition home or self-care (01) ==
LOC: EC 15:30
DX: N13.2 Hydronephrosis with renal and ureteral calculous obstruction (principal); Z90.49 Acquired absence of other specified parts of digestive tract
CPT/HCPCS: 36415; 80053; 85025; 81001; 74176; 99284; 96374; 96361; J1885

== ENCOUNTER → 2023-11-12 | Outpatient (CLI) | payer BC, MEDICARE | END | disposition home or self-care (01) | LOC: LABPRL 12:20 | DX: Z00.00 Encounter for general adult medical examination without abnormal findings (principal); Z12.5 Encounter for screening for malignant neoplasm of prostate; I10 Essential (primary) hypertension; E55.9 Vitamin D deficiency, unspecified | CPT/HCPCS: 80053; 80061; 82306; 83036; 85025 ==

== ENCOUNTER 2024-10-31 03:39 | Observation (INO) | payer BC, MEDICARE ==
--- NOTE | 2024-10-31 04:34 | ED ---
General Adult HPI - General Chief complaint: Chest Pain Stated complaint: Chest pain EFE Time Seen by Provider: 10/31/24 03:47 Source: patient Mode of arrival: wheelchair - History of Present Illness Initial comments: Dictation was produced using [employer] dictation software. please excuse any grammatical, word or spelling errors. Chief Complaint: 69-year-old male with chest pain History of Present Illness: Patient 69-year-old male presents emergency department chest pain. Patient has had symptoms for the last several hours. States that the pain feels sharp worse with deep inspiration radiates to his left arm and left jaw area. Denies any numbness tingling paresthesias to the arms or legs. Denies any cardiac history. No associated diaphoresis or nausea. States that hurts more when he takes a deep breath The ROS documented in this emergency department record has been reviewed and confirmed by me. Those systems with pertinent positive or negative responses have been documented in the HPI. All other systems are other negative and/or noncontributory. - Related Data Home Medications Medication Instructions Recorded Confirmed Aspirin [Adult Low Dose Aspirin EC] 81 mg PO DAILY 03/29/15 07/02/22 Losartan Potassium 100 mg PO QAM 03/29/15 07/05/22 Multivitamins, Thera [Multivitamin 1 tab PO DAILY 03/29/15 07/02/22 (formulary)] Previous Rx's Medication Instructions Recorded Ketorolac [Toradol] 10 mg PO Q6HR PRN 3 Days #12 tab 09/28/23 Allergies Allergy/AdvReac Type Severity Reaction Status Date / Time No Known Allergies Allergy Verified 09/28/23 15:35 Review of Systems ROS Statement: Those systems with pertinent positive or pertinent negative responses have been documented in the HPI. ROS Other: All systems not noted in ROS Statement are negative. Past Medical History Past Medical History: Cancer, Hypertension Additional Past Medical History / Comment(s): Hx kidney stones, hx melanoma on face 2019. History of Any Multi-Drug Resistant Organisms: None Reported Past Surgical History: Cholecystectomy, Hernia Repair Additional Past Surgical History / Comment(s): HEMORRHOIDECTOMY, colonoscopy, left inguinal hernia repair, skin cancer removed from face. Past Anesthesia/Blood Transfusion Reactions: No Reported Reaction Past Psychological History: No Psychological Hx Reported Smoking Status: Never smoker Past Alcohol Use History: Rare Past Drug Use History: None Reported - Past Family History Father Family Medical History: COPD Additional Family Medical History / Comment(s): . Mother Family Medical History: No Reported History Additional Family Medical History / Comment(s): Mother has "heart problems" . General Exam - General Exam Comments Initial Comments: PHYSICAL EXAM: General Impression: Alert and oriented x3, not in acute distress HEENT: Normocephalic atraumatic, extra-ocular movements intact, pupils equal and reactive to light bilaterally, mucous membranes moist. Cardiovascular: Heart regular rate and rhythm Chest: Able to complete full sentences, no retractions, no tachypnea Abdomen: abdomen soft, non-tender, non-distended, no organomegaly Musculoskeletal: Pulses present and equal in all extremities, no peripheral edema Motor: no focal deficits noted Neurological: CN II-XII grossly intact, no focal motor or sensory deficits noted Skin: Intact with no visualized rashes Psych: Normal affect and mood Course Vital Signs 10/31/24 03:41 Temperature 97.4 F L Pulse Rate 54 L Respiratory 20 Rate Blood Pressure 182/90 O2 Sat by Pulse 97 Oximetry Medical Decision Making - Medical Decision Making Was pt. sent in by a medical professional or institution (, PA, METAL HARDENER, urgent care, hospital, or half-way...) When possible be specific @ -No Did you speak to anyone other than the patient for history (EMS, parent, family, police, friend...)? What history was obtained from this source @ -No Did you review nursing and triage notes (agree or disagree)? Why? @ -I reviewed and agree with nursing and triage notes Were old charts reviewed (outside hosp., previous admission, EMS record, old EKG, old radiological studies, urgent care reports/EKG's, half-way records)? Report findings @ -No Differential Diagnosis (chest pain, altered mental status, abdominal pain women, abdominal pain men, vaginal bleeding, musculoskeletal, weakness, fever, dyspnea, syncope, headache, dizziness, GI bleed, back pain, seizure, CVA, palpatations, mental health)? @ -Differential Chest Pain: Stable Angina, Unstable Angina, STEMI, NSTEMI Aortic Dissection, Pneumothorax, Musculoskeletal, Esophageal Spasm GERD, Cholecystitis, Pancreatitis, Zoster, this is not meant to be an all-inclusive list. EKG interpreted by me (3pts min.). @ -See above X-rays interpreted by me (1pt min.). @ -Chest x-ray shows no acute processes CT interpreted by me (1pt min.). @ -None done U/S interpreted by me (1pt. min.). @ -None done What testing was considered but not performed or refused? (CT, X-rays, U/S, labs)? Why? @ -None What meds were considered but not given or refused? Why? @ -None Was smoking cessation discussed for >3mins.? @ -No Were there social determinants of health that impacted care today? How? (Homelessness, low income, unemployed, alcoholism, drug addiction, transportation, low edu. Level, literacy, decrease access to med. care, skilled nursing, rehab)? @ -No Was there de-escalation of care discussed even if they declined (Discuss DNR or withdrawal of care, Hospice)? DNR status @ -No What co-morbidities impacted this encounter? (DM, HTN, Smoking, COPD, CAD, Cancer, CVA, ARF, Chemo, Hep., AIDS, mental health diagnosis, sleep apnea, morbid obesity)? @ -None Was patient admitted / discharged? Hospital course, mention meds given and route, prescriptions, significant lab abnormalities, going to OR and other pertinent info. @ -69-year-old male with atypical chest pain typical features. Vital signs are stable. EKG is unremarkable. Laboratory evaluation including D-dimer and troponins negative. Chest x-ray nonacute. Disposition options were discussed. Agreeable for observation admission with cardiology consultation. Patient given aspirin Did you discuss the management of the patient with other professionals (prof campos i.e. , PA, METAL HARDENER, lab, RT, psych nurse, case management social worker, meat soaker, teacher, air intelligence officer, case management social worker)? Give summary @ -Case discussed with hospitalist for admission Was critical care preformed (if so, how long)? @ -No Undiagnosed new problem with uncertain prognosis? @ -No Drug Therapy requiring intensive monitoring for toxicity (Heparin, Nitro, Insulin, Cardizem)? @ -No Were any procedures done? @ -No Diagnosis/symptom? Acute, or Chronic, or Acute on Chronic? Uncomplicated (wit hout systemic symptoms) or Complicated (systemic symptoms)? @ -Chest pain Side effects of treatment? @ -No Exacerbation, Progression, or Severe Exacerbation? @ -No Poses a threat to life or bodily function? How? (Chest pain, [place], [place], pneumonia, PE, COPD, DKA, ARF, appy, cholecystitis, CVA, Diverticulitis, Homicidal, Suicidal, threat to staff... and all critical care pts) @ -yes - Lab Data Result diagrams: 10/31/24 04:15 10/31/24 04:15 Lab Results 10/31/24 10/31/24 10/31/24 Range/Units 04:15 04:15 04:15 WBC 9.69 (4.50-10.00) 10*3/uL RBC 4.68 (4.40-5.60) 10*6/uL Hgb 14.1 (13.0-17.0) g/dL Hct 41.7 (39.6-50.0) % MCV 89.1 (80.0-97.0) fL MCH 30.1 (27.0-32.0) pg MCHC 33.8 (32.0-37.0) g/dL Plt Count 172 (140-440) 10*3/uL MPV 8.1 L (9.5-12.2) fL Immature Gran % (Auto) 0.7 % Neutrophils % 72.2 % Lymphocytes % 15.8 % Monocytes % 8.7 % Eosinophils % 2.3 % Basophils % 0.3 % Immature Gran # 0.07 H (0.00-0.04) 10*3/uL Neutrophils # 7.00 (1.80-7.70) 10*3/uL Lymphocytes # 1.53 (0.90-5.00) 10*3/uL Monocytes # 0.84 (0.20-1.00) 10*3/uL Eosinophils # 0.22 (0.04-0.35) 10*3/uL Basophils # 0.03 (0.00-0.10) 10*3/uL PT 10.1 (10.0-12.5) sec INR 0.9 (<1.2) APTT 22.2 (22.0-30.0) sec D-Dimer (<0.60) mg/L FEU Sodium 139 (137-145) mmol/L Potassium 4.4 (3.5-5.1) mmol/L Chloride 105 (98-107) mmol/L Carbon Dioxide 23 (22-30) mmol/L Anion Gap 11 mmol/L BUN 23 H (9-20) mg/dL Creatinine 0.71 (0.66-1.25) mg/dL Est GFR (CKD-EPI)AfAm >90 (>60 ml/min/1.73 sqM) Est GFR (CKD-EPI)NonAf >90 (>60 ml/min/1.73 sqM) Glucose 106 H (74-99) mg/dL Calcium 9.6 (8.4-10.2) mg/dL Magnesium 2.0 (1.6-2.3) mg/dL Total Bilirubin 0.5 (0.2-1.3) mg/dL AST 33 (17-59) U/L ALT 48 (4-49) U/L Alkaline Phosphatase 52 (38-126) U/L Troponin I (0.000-0.034) ng/mL Total Protein 7.2 (6.3-8.2) g/dL Albumin 4.5 (3.5-5.0) g/dL 10/31/24 10/31/24 Range/Units 04:15 04:15 WBC (4.50-10.00) 10*3/uL RBC (4.40-5.60) 10*6/uL Hgb (13.0-17.0) g/dL Hct (39.6-50.0) % MCV (80.0-97.0) fL MCH (27.0-32.0) pg MCHC (32.0-37.0) g/dL Plt Count (140-440) 10*3/uL MPV (9.5-12.2) fL Immature Gran % (Auto) % Neutrophils % % Lymphocytes % % Monocytes % % Eosinophils % % Basophils % % Immature Gran # (0.00-0.04) 10*3/uL Neutrophils # (1.80-7.70) 10*3/uL Lymphocytes # (0.90-5.00) 10*3/uL Monocytes # (0.20-1.00) 10*3/uL Eosinophils # (0.04-0.35) 10*3/uL Basophils # (0.00-0.10) 10*3/uL PT (10.0-12.5) sec INR (<1.2) APTT (22.0-30.0) sec D-Dimer 0.31 (<0.60) mg/L FEU Sodium (137-145) mmol/L Potassium (3.5-5.1) mmol/L Chloride (98-107) mmol/L Carbon Dioxide (22-30) mmol/L Anion Gap mmol/L BUN (9-20) mg/dL Creatinine (0.66-1.25) mg/dL Est GFR (CKD-EPI)AfAm (>60 ml/min/1.73 sqM) Est GFR (CKD-EPI)NonAf (>60 ml/min/1.73 sqM) Glucose (74-99) mg/dL Calcium (8.4-10.2) mg/dL Magnesium (1.6-2.3) mg/dL Total Bilirubin (0.2-1.3) mg/dL AST (17-59) U/L ALT (4-49) U/L Alkaline Phosphatase (38-126) U/L Troponin I <0.012 (0.000-0.034) ng/mL Total Protein (6.3-8.2) g/dL Albumin (3.5-5.0) g/dL Disposition Clinical Impression: Chest pain Disposition: ADMITTED IP TO THIS HOSP Condition: Fair Referrals: Aryan Burgess DO [Primary Care Provider] - 1-2 days Decision Time: 06:31
[2024-10-31 04:36] LABS: Basophils # (A) 0.03 10*3/uL (0.00-0.10); Basophils % (A) 0.3 %; Eosinophils # (A) 0.22 10*3/uL (0.04-0.35); Eosinophils % (A) 2.3 %; HCT 41.7 % (39.6-50.0); HGB 14.1 g/dL (13.0-17.0); Lymphocytes # (A) 1.53 10*3/uL (0.90-5.00); Lymphocytes % (A) 15.8 %; MCH 30.1 pg (27.0-32.0); MCHC 33.8 g/dL (32.0-37.0); MCV 89.1 fL (80.0-97.0); Monocytes # (A) 0.84 10*3/uL (0.20-1.00); Monocytes % (A) 8.7 %; Neutrophils # (A) 7.00 10*3/uL (1.80-7.70); Neutrophils % (A) 72.2 %; Platelet Count 172 10*3/uL (140-440); RBC 4.68 10*6/uL (4.40-5.60); RDW 13.2 % (11.5-14.5); WBC 9.69 10*3/uL (4.50-10.00)
[2024-10-31 04:54] LABS: INR 0.9 (<1.2); Partial Thromboplastin Time 22.2 sec (22.0-30.0); Prothrombin Time 10.1 sec (10.0-12.5)
[2024-10-31 04:56] LABS: ALT 48 U/L (4-49); AST 33 U/L (17-59); African American GFR (CKD) >90 (>60 ml/min/1.73 sqM); Albumin 4.5 g/dL (3.5-5.0); Alkaline Phosphatase 52 U/L (38-126); Anion Gap 11 mmol/L; Blood Urea Nitrogen 23 mg/dL (9-20); Calcium 9.6 mg/dL (8.4-10.2); Carbon Dioxide 23 mmol/L (22-30); Chloride 105 mmol/L (98-107); Glucose 106 mg/dL (74-99); Magnesium 2.0 mg/dL (1.6-2.3); Non-African American GFR(CKD) >90 (>60 ml/min/1.73 sqM); Potassium 4.4 mmol/L (3.5-5.1); Sodium 139 mmol/L (137-145); Total Protein 7.2 g/dL (6.3-8.2)
[2024-10-31] MEDS ORDERED: NITROGLYCERIN SL TABS 0.4 MG TAB SUBLINGUAL PRN (06:29)
[2024-10-31] MEDS: ASPIRIN 81 MG PO STA (06:46)
--- NOTE | 2024-10-31 07:32 | XR ---
EXAMINATION TYPE: XR chest 2V DATE OF EXAM: 10/31/2024 4:42 AM COMPARISON: 03/07/2016 CLINICAL INDICATION: Male, 69 years old with history of Chest Pain: Shortness of breath TECHNIQUE: XR chest 2V views of the chest are obtained. FINDINGS: Scattered senescent parenchymal changes noted. Hyperinflation compatible with COPD. No evidence for infiltrate. There is right suprahilar fullness noted. Consider CT correlation if felt clinically indicated. Heart size is stable. Mediastinal structures are stable and grossly unremarkable. No evidence for hilar prominence. Degenerative changes dorsal spine. IMPRESSION: 1. There is right suprahilar fullness noted. Consider CT correlation if felt clinically indicated. [facility], , 10/31/2024 7:30 AM
[2024-10-31 08:50] VITALS: BP 164/85; PULSE 54; RESP 17; TEMP 97.8
[2024-10-31] MEDS: LOSARTAN 50 MG TAB PO SCH (12:02)
[2024-10-31] MEDS: MULTIVITAMINS, THERA 1 EACH TAB PO SCH (12:02)
[2024-10-31] MEDS: CYANOCOBALAMIN 500 MCG TAB PO SCH (12:02)
--- NOTE | 2024-10-31 15:10 | P.CRDCN ---
History of Present Illness Consult date: 10/31/24 History of present illness: HISTORY OF PRESENTING ILLNESS: 69-year-old presented to the hospital because of substernal chest pressure that would get worse with taking deep inspiration. He describes that sharp, radiating to left arm and left jaw area. He denies being much physically active. He denies any worsening chest pain chest pressure with exertion. He reports that his symptoms started without any activity. His symptoms does not necessarily get better with resting. He denies any smoking. Reports occasional alcohol use. Denies any marijuana use or any drug use. Does report family history of heart disease in mother with hypertension and valve disease. Father had diabetes and hypertension. ............................................................ ................................................................................ .. BP 182/90, heart rate 54 bpm EKG shows sinus rhythm with no significant ST-T wave changes that are concerning for ischemia. Incomplete right bundle branch block. Labs are essentially within normal limits with normal troponin. ................................................................................ .............................................................. Prior cardiac testing: [ ] ................... ................................................................................ ........................................... REVIEW OF SYSTEMS: 14 point review of system is negative except what is mentioned above in HPI. ................................................................................ .............................................................. PHYSICAL EXAMINATION: Neck: Brisk carotid upstroke, no jugular venous distention. Lungs: Clear to auscultation. Heart: Regular rate and rhythm, S1-S2, , no murmur or rub. Abdomen: Soft nontender, positive bowel sounds. Extremities: No edema, intact distal pulses. Neuro: Alert, oritented, no focal deficits. Detailed neuro exam was not p erformed. ................................................................................ .............................................................. ASSESSMENT: # Atypical chest pain, ACS has been ruled out # Essential hypertension, poorly controlled # Obesity PLAN: At home is on losartan 100 mg daily, aspirin 80 mg daily, amlodipine 5 mg daily. I will add HCTZ 25 mg daily and Lipitor 40 mg daily I recommended him to stay in the hospital to get a echocardiogram and a stress test done to rule out severe obstructive CAD however patient is very adamant to go home. He understands the risk factors of not getting tested including the risk of I have given him our office details to contact us in case of any question. Recommend close outpatient follow-up. Christiano Oseguera MD, FACC, RPVI Past Medical History Past Medical History: Cancer, Hypertension Additional Past Medical History / Comment(s): Hx kidney stones, hx melanoma on face 2019. History of Any Multi-Drug Resistant Organisms: None Reported Past Surgical History: Cholecystectomy, Hernia Repair Additional Past Surgical History / Comment(s): HEMORRHOIDECTOMY, colonoscopy, left inguinal hernia repair, skin cancer removed from face. Past Anesthesia/Blood Transfusion Reactions: No Reported Reaction Past Psychological History: No Psychological Hx Reported Additional Psychological History / Comment(s): Pt resides with his spouse. He is independent. Smoking Status: Never smoker Past Alcohol Use History: Rare Past Drug Use History: None Reported - Past Family History Father Family Medical History: COPD Additional Family Medical History / Comment(s): . Mother Family Medical History: No Reported History Additional Family Medical History / Comment(s): Mother has "heart problems" . Medications and Allergies Home Medications Medication Instructions Recorded Confirmed Type Aspirin [Adult Low Dose Aspirin EC] 81 mg PO DAILY 03/29/15 10/31/24 History Losartan Potassium 100 mg PO DAILY 03/29/15 10/31/24 History Multivitamins, Thera [Multivitamin 1 tab PO DAILY 03/29/15 10/31/24 History (formulary)] Atorvastatin Calcium [Lipitor] 40 mg PO DAILY 90 Days #90 tab 10/31/24 Rx Cyanocobalamin (Vitamin B-12) 1,000 mcg PO DAILY 10/31/24 10/31/24 History [Vitamin B-12] amLODIPine [Norvasc] 5 mg PO DAILY #30 tab 10/31/24 Rx hydroCHLOROthiazide 25 mg PO DAILY 90 Days #90 tablet 10/31/24 Rx Allergies Allergy/AdvReac Type Severity Reaction Status Date / Time No Known Allergies Allergy Verified 10/31/24 08:20 Physical Exam Vitals: Vital Signs Temp Pulse Pulse Resp BP BP Pulse Ox 10/31/24 08:47 97.8 F 54 L 17 164/85 96 10/31/24 07:27 47 L 20 138/87 96 10/31/24 06:47 57 L 17 148/95 97 10/31/24 03:41 97.4 F L 54 L 20 182/90 97 Intake and Output 10/31/24 10/31/24 10/31/24 06:59 14:59 22:59 Other: # Voids 3 Weight 121.563 kg 121.563 kg Results 10/31/24 04:15 10/31/24 04:15 Cardiac Enzymes 10/31/24 10/31/24 10/31/24 Range/Units 04:15 04:15 07:05 AST 33 (17-59) U/L Troponin I <0.012 <0.012 (0.000-0.034) ng/mL 10/31/24 Range/Units 09:19 AST (17-59) U/L Troponin I <0.012 (0.000-0.034) ng/mL Coagulation 10/31/24 Range/Units 04:15 PT 10.1 (10.0-12.5) sec APTT 22.2 (22.0-30.0) sec CBC 10/31/24 Range/Units 04:15 WBC 9.69 (4.50-10.00) 10*3/uL RBC 4.68 (4.40-5.60) 10*6/uL Hgb 14.1 (13.0-17.0) g/dL Hct 41.7 (39.6-50.0) % Plt Count 172 (140-440) 10*3/uL Comprehensive Metabolic Panel 10/31/24 Range/Units 04:15 Sodium 139 (137-145) mmol/L Potassium 4.4 (3.5-5.1) mmol/L Chloride 105 (98-107) mmol/L Carbon Dioxide 23 (22-30) mmol/L BUN 23 H (9-20) mg/dL Creatinine 0.71 (0.66-1.25) mg/dL Glucose 106 H (74-99) mg/dL Calcium 9.6 (8.4-10.2) mg/dL AST 33 (17-59) U/L ALT 48 (4-49) U/L Alkaline Phosphatase 52 (38-126) U/L Total Protein 7.2 (6.3-8.2) g/dL Albumin 4.5 (3.5-5.0) g/dL Current Medications Generic Name Dose Route Start Last Admin Trade Name Freq PRN Reason Stop Dose Admin Aspirin 325 mg 11/01/24 09:00 Aspirin 325 Mg Tab PO DAILY EDER Cyanocobalamin 1,000 mcg 10/31/24 09:45 10/31/24 12:02 Cyanocobalamin 500 Mcg Tab PO 1,000 mcg DAILY EDER Administration Losartan Potassium 100 mg 10/31/24 09:45 10/31/24 12:02 Losartan 50 Mg Tab PO 100 mg DAILY EDER Administration Multivitamins 1 each 10/31/24 09:45 10/31/24 12:02 Multivitamins, Thera 1 Each Tab PO 1 each DAILY EDER Administration Nitroglycerin 0.4 mg 10/31/24 06:29 Nitroglycerin Sl Tabs 0.4 Mg Tab SUBLINGUAL Q5M PRN Chest Pain Intake and Output 10/31/24 10/31/24 10/31/24 06:59 14:59 22:59 Other: # Voids 3 Weight 121.563 kg 121.563 kg Patient Weight 11/01/24 06:59 Weight 121.563 kg 10/31/24 04:15 10/31/24 04:15
--- NOTE | 2024-11-01 00:13 | HP ---
HISTORY AND PHYSICAL This is a combined history and physical and discharge summary. CHIEF COMPLAINT: Chest pain. HISTORY OF PRESENT ILLNESS: This is a 69-year-old gentleman with a past medical history of multiple medical problems including hypertension, was complaining of chest pain, which is felt in the anterior part of the chest for several hours. The pain was also worsening on deep inspiration. Pain was radiating to the left jaw area and left shoulder also. Troponins are negative. EKG did not show any acute abnormality. Cardiology saw the patient, who recommended outpatient stress test at this time. There is no history of any fever, rigors, or chills. PAST MEDICAL HISTORY: Reviewed include hypertension. Rest of the chart is also reviewed. HOME MEDICATIONS: Reviewed. Multivitamin. ALLERGIES: None. FAMILY HISTORY: Mother had heart problems. SOCIAL HISTORY: No history of smoking. REVIEW OF SYSTEMS: 14-point review of systems negative except as mentioned earlier. PHYSICAL EXAMINATION: VITAL SIGNS: Pulse is 54, blood pressure 160/80, respirations 17. HEENT: Conjunctivae normal. NECK: No jugular venous distention. CARDIOVASCULAR: S1 and S2. RESPIRATION: Breath sounds diminished at the bases ABDOMEN: Soft. EXTREMITIES: Legs, no edema. NERVOUS SYSTEM: Nonfocal. LABORATORY DATA: Reviewed. ASSESSMENT: 1. Chest pain, myocardial infarction ruled out. Rule out coronary artery disease. 2. Hypertension. 3. Bradycardia. 4. History of kidney stones. 5. History of melanoma. 6. Multiple complex medical issues. RECOMMENDATION: This is a 69-year-old gentleman, who presented with multiple complex medical issues. I would recommend to continue the current medications, continue symptomatic treatment. Otherwise, I would recommend to resume the home medications. We will add Norvasc to the current regimen and also recommendation per Cardiology for outpatient stress test. Prognosis guarded. Recommend limited activity. Please refer to the medication reconciliation sheet for list of medications. MMODL / IJN: [id number] /
[2024-11-01] MEDS ORDERED: ASPIRIN 325 MG TAB PO SCH (09:00)
== END 2024-10-31 15:26 | disposition home or self-care (01) ==
LOC: EC 03:39 → 6NMEDSUR 06:29
PROVIDERS: ADMIT Hospitalist; ATTEND Hospitalist
DX: R07.89 Other chest pain (principal); I10 Essential (primary) hypertension; R00.1 Bradycardia, unspecified; I45.10 Unspecified right bundle-branch block; E66.9 Obesity, unspecified; Z79.82 Long term (current) use of aspirin; Z79.899 Other long term (current) drug therapy; Z82.49 Family history of ischemic heart disease and other diseases of the circulatory system; Z85.820 Personal history of malignant melanoma of skin; Z85.828 Personal history of other malignant neoplasm of skin; Z87.442 Personal history of urinary calculi
CPT/HCPCS: 99285; 36415; 93005; 85379; 80053; 83735; 84484; 85025; 85610; 85730; 71046; G0378